=== PATIENT | male | born 1995 | race Caucasian/White ===

== ENCOUNTER 2017-12-25 18:04 | Emergency (ER) | payer OTHER ==
[2017-12-25 18:12] VITALS: BP 109/68; TEMP 99
--- NOTE | 2017-12-25 18:23 | ED ---
ENT HPI - General Chief complaint: ENT Stated complaint: sore throat Time Seen by Provider: 12/25/17 18:18 Source: patient, RN notes reviewed Mode of arrival: ambulatory Limitations: no limitations - History of Present Illness Initial comments: This is a 22-year-old male who presents to the emergency department with chief complaint of sore throat. Patient states that his throat began to feel sore 2 days ago. He states that he feels like he may have strep throat as he has noticed lesions on his tonsils. Patient states that he has difficulty swallowing due to the pain. He states that he has also been febrile. Denies abdominal pain, nausea or vomiting, diarrhea or constipation. He denies any difficulty breathing or chest pain. - Related Data Previous Rx's Medication Instructions Recorded Sulfamethox-Tmp 800-160Mg [Bactrim 2 each PO Q12HR #56 tab 04/29/15 DS 800-160 mg] Amoxicillin 875 mg PO Q12HR #20 tablet 12/25/17 Allergies Allergy/AdvReac Type Severity Reaction Status Date / Time No Known Allergies Allergy Verified 12/25/17 18:12 Review of Systems ROS Statement: Those systems with pertinent positive or pertinent negative responses have been documented in the HPI. ROS Other: All systems not noted in ROS Statement are negative. Past Medical History Past Medical History: No Reported History History of Any Multi-Drug Resistant Organisms: None Reported Past Surgical History: Adenoidectomy Past Psychological History: No Psychological Hx Reported Smoking Status: Current every day smoker Past Alcohol Use History: Occasional Past Drug Use History: None Reported General Exam - General Exam Comments Initial Comments: General: Awake and alert, well-developed; in no apparent distress. HEENT: Head atraumatic, normocephalic. Pupils are equal, round and reactive to light. Extraocular movements intact. Oropharynx moist, diffusely erythematous with exudates noted on bilateral tonsils. Neck: Supple. Normal ROM. Tender cervical lymphadenopathy. Cardiovascular: Regular rate and rhythm. No murmurs, rubs or gallops. Chest symmetrical. Respiratory: Lungs clear to auscultation bilaterally. No wheezes, rales or rhonchi. Normal respiratory effort with no use of accessory muscles. Musculoskeletal: Normal ROM, no tenderness bilateral upper and lower extremities. Ambulating normally. Skin: [place], warm and dry without rashes or lesions. Neurological: Alert and oriented x3. CN II-XII grossly intact. Speech is fluent and answers are appropriate. No focal neuro deficits. Psychiatric: Normal mood and affect. No overt signs of depression or anxiety noted. Limitations: no limitations Course Vital Signs 12/25/17 12/25/17 18:09 18:53 Temperature 99.0 F Pulse Rate 108 H 94 Respiratory 20 17 Rate Blood Pressure 109/68 O2 Sat by Pulse 100 100 Oximetry Medical Decision Making - Medical Decision Making This is a 22-year-old male who presents to the emergency department with chief complaint of sore throat. Rapid strep was positive. Patient will be given a prescription for amoxicillin. He is in no acute distress and will be discharged home. He is in agreement and voices understanding. All questions were answered. - Lab Data Lab Results 12/25/17 Range/Units 18:20 Group A Strep Rapid Positive A (Negative) Disposition Clinical Impression: Streptococcal sore throat Disposition: HOME SELF-CARE Condition: Good Instructions: Strep Throat (ED) Additional Instructions: Please take medications as prescribed. Please follow up with primary care provider within 1-2 days. Return to emergency department if symptoms should worsen or any concerns arise. Prescriptions: Amoxicillin 875 mg PO Q12HR #20 tablet Referrals: eClestino Mark MD [Primary Care Provider] - 1-2 days Time of Disposition: 18:44
[2017-12-25 18:54] VITALS: PULSE 94; RESP 17
== END 2017-12-25 18:52 | disposition home or self-care (01) ==
LOC: EC 18:04
DX: J02.0 Streptococcal pharyngitis (principal); F17.200 Nicotine dependence, unspecified, uncomplicated
CPT/HCPCS: 87430; 99283

== ENCOUNTER 2018-01-29 12:00 | Emergency (ER) | payer OTHER ==
[2018-01-29 12:08] VITALS: BP 113/79; PULSE 79; RESP 16; TEMP 98.6
[2018-01-29] MEDS ORDERED: DIPH,PERTUS(ACELL)TETVAC-LF 0.5 ML VIAL IM ONE (12:14)
--- NOTE | 2018-01-29 12:19 | ED ---
General Adult HPI - General Chief complaint: Wound/Laceration Stated complaint: Hand laceration Time Seen by Provider: 01/29/18 12:09 Source: patient, RN notes reviewed Mode of arrival: ambulatory Limitations: no limitations - History of Present Illness Initial comments: Patient 22-year-old male presented to the emergency room today with chief complaint of a injury to the right hand. He states that a glass dropped and was trying to catch it broke as he hit it with the back of his hand causing a laceration just distal to the third MCP joint. Patient states she has full range of motion. He states he did try to move with some glue last night noticed that his stool bleeding just a little bit this morning. He denies any other complaints or symptoms. Patient unsure of tetanus status. Patient denies any recent fever, chills, shortness of breath, chest pain, back pain, abdominal pain, nausea or vomiting, numbness or tingling, headaches or visual changes, or any other complaints. - Related Data Previous Rx's Medication Instructions Recorded Sulfamethox-Tmp 800-160Mg [Bactrim 2 each PO Q12HR #56 tab 04/29/15 DS 800-160 mg] Amoxicillin 875 mg PO Q12HR #20 tablet 12/25/17 Cephalexin [Keflex] 500 mg PO Q12HR 7 Days cap 01/29/18 Allergies Allergy/AdvReac Type Severity Reaction Status Date / Time No Known Allergies Allergy Verified 12/25/17 18:12 Review of Systems ROS Statement: Those systems with pertinent positive or pertinent negative responses have been documented in the HPI. ROS Other: All systems not noted in ROS Statement are negative. Past Medical History Past Medical History: No Reported History History of Any Multi-Drug Resistant Organisms: None Reported Past Surgical History: Adenoidectomy Past Psychological History: No Psychological Hx Reported Smoking Status: Current every day smoker Past Alcohol Use History: Occasional Past Drug Use History: None Reported General Exam - General Exam Comments Initial Comments: General: The patient is awake and alert, in no distress, and does not appear acutely ill. Neck: The neck is supple, there is no tenderness or JVD. Cardiovascular: There is a regular rate and rhythm. No murmur, rub or gallop is appreciated. Respiratory: Lungs are clear to auscultation, respirations are non-labored, breath sounds are equal. No wheezes, stridor, rales, or rhonchi. Musculoskeletal: Patient has full range motion. Sensation intact. Pulses equal bilaterally 2+. Strength is 5/5 in all directions. Neurological: A&O x 3. CN II-XII intact, There are no obvious motor or sensory deficits. Coordination appears grossly intact. Speech is normal. Skin: 1 cm linear laceration running horizontally just distal to the MCP joint of the third digit. No active bleeding. Wound edges are covered with glue. Psychiatric: Normal mood and affect. Limitations: no limitations Course Vital Signs 01/29/18 12:04 Temperature 98.6 F Pulse Rate 79 Respiratory 16 Rate Blood Pressure 113/79 O2 Sat by Pulse 98 Oximetry Medical Decision Making - Medical Decision Making Patient's x-ray reviewed no sign of foreign body. No fracture dislocation. Patient's tetanus updated. Patient advised that is been wound has been open for her than 12 hours. Advised to allow to heal by secondary intention will be given antibiotics cover for infection. Disposition Clinical Impression: Laceration Disposition: HOME SELF-CARE Condition: Good Instructions: Laceration (ED) Additional Instructions: Please watch for signs of infection. Please use antibiotic as prescribed. Please return to emergency room for any other concerns. Prescriptions: Cephalexin [Keflex] 500 mg PO Q12HR 7 Days cap Referrals: Celestino Mark MD [Primary Care Provider] - 1-2 days Time of Disposition: 12:50
--- NOTE | 2018-01-29 12:30 | XR ---
EXAMINATION TYPE: XR hand limited RT DATE OF EXAM: 01/29/2018 COMPARISON: NONE HISTORY: Pain laceration third metacarpal phalangeal joint space from glass TECHNIQUE: 2 view right hand FINDINGS: No acute osseous abnormality is evident. Joint spaces are preserved. There may be some soft tissue swelling over the dorsum of the metacarpal phalangeal joint region. A radiopaque foreign body to suggest glass is not identified. IMPRESSION: 1. No acute osseous abnormality. 2. No radiopaque foreign bodies. 3. Mild soft tissue swelling dorsal metacarpal phalangeal joint space
== END 2018-01-29 12:56 | disposition home or self-care (01) ==
LOC: EC 12:00
DX: S61.212A Laceration without foreign body of right middle finger without damage to nail, initial encounter (principal); F17.200 Nicotine dependence, unspecified, uncomplicated; Z23 Encounter for immunization; W20.8XXA Other cause of strike by thrown, projected or falling object, initial encounter; Y93.89 Activity, other specified; Y92.009 Unspecified place in unspecified non-institutional (private) residence as the place of occurrence of the external cause
CPT/HCPCS: 90471; 90715; 99283

== ENCOUNTER → 2018-03-04 | Outpatient (CLI) | payer OTHER ==
--- NOTE | 2018-03-04 22:24 | MR ---
EXAMINATION TYPE: MR cervical spine wo con DATE OF EXAM: 03/04/2018 COMPARISON: NONE HISTORY: Neck pain and stiffness, Headaches TECHNIQUE: Multiplanar, multisequence images of the cervical spine were acquired. C2-C3: No evidence for degenerative disc disease. No disc bulge/herniation or protrusion. No Canal stenosis. Foramina are patent bilaterally. C3-C4: No evidence for degenerative disc disease. No disc bulge/herniation or protrusion. No Canal stenosis. Foramina are patent bilaterally. C4-C5: No evidence for degenerative disc disease. No disc bulge/herniation or protrusion. No Canal stenosis. Foramina are patent bilaterally. C5-C6: No evidence for degenerative disc disease. No disc bulge/herniation or protrusion. No Canal stenosis. Foramina are patent bilaterally. C6-C7: No evidence for degenerative disc disease. No disc bulge/herniation or protrusion. No Canal stenosis. Foramina are patent bilaterally. C7-T1: No evidence for degenerative disc disease. No disc bulge/herniation or protrusion. No Canal stenosis. Foramina are patent bilaterally. Note is made of some mild disc bulging T2-T3 with mild anterior thecal sac compression. Cord contact is not identified. This is identified only in the sagittal plane. IMPRESSION: 1. Normal MRI cervical spine. 2. Note is made of some degenerative disc changes and mild disc bulge T2-T3 with mild anterior thecal sac compression in the sagittal plane.
== END | disposition home or self-care (01) ==
LOC: RADMRIMAIN 21:14
DX: M54.2 Cervicalgia (principal); S13.120A Subluxation of C1/C2 cervical vertebrae, initial encounter
CPT/HCPCS: 72141

== ENCOUNTER → 2018-03-19 | Outpatient (CLI) | payer OTHER ==
--- NOTE | 2018-03-19 10:07 | MR ---
EXAMINATION TYPE: MR lumbar spine wo con DATE OF EXAM: 03/19/2018 COMPARISON: NONE HISTORY: Subluxation of lumbar vertebra TECHNIQUE: Multiplanar, multisequence images of the lumbar spine were acquired. FINDINGS: The vertebral bodies maintain normal vertebral body height and alignment. Bone marrow signa l is within normal limits. Small Schmorl's node is seen of the inferior endplate of T12. Conus [place] is unremarkable terminating at T12-L1. L1-L2: There is a very small broad-based disc bulge with mild flattening of the usual disc and cavity posteriorly. No significant disc desiccation. No focality to indicate disc herniation. No annular te ar. No neural foraminal narrowing or spinal canal stenosis. L2-L3: Normal disc appearance without desiccation. No herniation, protrusion or disc bulging. No ca nal stenosis is present. Foramina are patent bilaterally. L3-L4: Normal disc appearance without desiccation. No herniation, protrusion or disc bulging. No ca nal stenosis is present. Foramina are patent bilaterally. L4-L5: Very small disc bulge is seen without disc desiccation, herniation or annular tear. No spinal canal stenosis or neuroforaminal narrowing. L5-S1: Normal disc appearance without desiccation. No herniation, protrusion or disc bulging. No ca nal stenosis is present. Foramina are patent bilaterally. IMPRESSION: 1. No spinal canal stenosis, disc herniation or neural foraminal narrowing throughout the lumbar spin e. Vertebral bodies maintain normal vertebral body height and alignment. Unremarkable bone marrow sig nal. 2. Very mild degenerative disc disease of L1-L2 and L4-L5.
== END | disposition home or self-care (01) ==
LOC: RADMRIMAIN 09:25
PROVIDERS: ATTEND Chiropractor
DX: M51.36 Other intervertebral disc degeneration, lumbar region (principal); M54.2 Cervicalgia
CPT/HCPCS: 72148

== ENCOUNTER 2018-05-21 10:54 | Emergency (ER) | payer OTHER ==
[2018-05-21 11:06] VITALS: BP 112/85; PULSE 78; RESP 20; TEMP 98
[2018-05-21] MEDS ORDERED: MORPHINE SULFATE 2 MG/ML SYRINGE IM STA (11:28)
[2018-05-21] MEDS ORDERED: KETOROLAC 60 MG/2 ML VIAL IM STA (11:28)
--- NOTE | 2018-05-21 11:30 | ED ---
General Adult HPI - General Chief complaint: Fall Stated complaint: Rib Injury Time Seen by Provider: 05/21/18 11:05 Source: patient, RN notes reviewed Mode of arrival: ambulatory Limitations: no limitations - History of Present Illness Initial comments: This is a 22-year-old male who comes in complaining of left sided rib pain. Patient states he was trying to get into his house through the bathroom window when he came into the bathroom and ago he fell onto a ceramic tub against the left side of his rib cage. Patient states this occurred 3 days ago when he was locked out of his house. Patient states he has no shortness of breath but it hurts to take a deep breath. Patient denies any other pain patient denies any head or neck injury. Patient denies any abdominal pain. - Related Data Home Medications Medication Instructions Recorded Confirmed Eye Lubricant Combination No.1 1 applic BOTH EYES DAILY PRN 05/21/18 05/21/18 [[place]] Previous Rx's Medication Instructions Recorded Amoxicillin 875 mg PO Q12HR #20 tablet 12/25/17 Hydrocodone/Acetaminophen [[place] 1 each PO Q4HR PRN #14 tab 05/21/18 5-325] Ibuprofen [Motrin] 600 mg PO Q6HR PRN #20 tab 05/21/18 Allergies Allergy/AdvReac Type Severity Reaction Status Date / Time apple AdvReac Unknown Verified 05/21/18 11:58 Review of Systems ROS Statement: Those systems with pertinent positive or pertinent negative responses have been documented in the HPI. ROS Other: All systems not noted in ROS Statement are negative. Past Medical History Past Medical History: No Reported History History of Any Multi-Drug Resistant Organisms: None Reported Past Surgical History: Adenoidectomy Past Psychological History: No Psychological Hx Reported Smoking Status: Current every day smoker Past Alcohol Use History: Occasional Past Drug Use History: None Reported General Exam - General Exam Comments Initial Comments: GENERAL: Patient is well-developed and well-nourished. Patient is nontoxic and well- hydrated and is in mild distress. ENT: Neck is soft and supple. No significant lymphadenopathy is noted. Oropharynx is clear. Moist mucous membranes. Neck has full range of motion without eliciting any pain. EYES: The sclera were anicteric and conjunctiva were pink and moist. Extraocular movements were intact and pupils were equal round and reactive to light. Eyelids were unremarkable. PULMONARY: Unlabored respirations. Good breath sounds bilaterally. No audible rales rhonchi or wheezing was noted. CARDIOVASCULAR: There is a regular rate and rhythm without any murmurs gallops or rubs. Left lateral ribs are extremely tender to touch ABDOMEN: Soft and nontender with normal bowel sounds. No palpable organomegaly was noted. There is no palpable pulsatile mass. SKIN: Skin is clear with no lesions or rashes and otherwise unremarkable. NEUROLOGIC: Patient is alert and oriented x3. Cranial nerves II through XII are grossly intact. Motor and sensory are also intact. Normal speech, volume and content. Symmetrical smile. MUSCULOSKELETAL: Normal extremities with adequate strength and full range of motion. LYMPHATICS: No significant lymphadenopathy is noted PSYCHIATRIC: Normal psychiatric evaluation. Limitations: no limitations Course Vital Signs 05/21/18 11:04 Temperature 98.0 F Pulse Rate 78 Respiratory 20 Rate Blood Pressure 112/85 O2 Sat by Pulse 99 Oximetry Medical Decision Making - Medical Decision Making Chest x-ray shows no obvious rib fractures or injury to the lung Disposition Clinical Impression: Chest wall contusion Disposition: HOME SELF-CARE Instructions: Chest Wall Pain (ED) Prescriptions: Hydrocodone/Acetaminophen [[place] 5-325] 1 each PO Q4HR PRN #14 tab PRN Reason: Pain Ibuprofen [Motrin] 600 mg PO Q6HR PRN #20 tab PRN Reason: For pain Is patient prescribed a controlled substance at d/c from ED?: Yes When asked, does pt state using other controlled substances?: No If prescribed controlled substance>3 days was MAPS reviewed?: Prescribed <3 Days If opioid is for acute pain is fill amount 7 days or less?: Yes If Rx opioid, was Start Talking consent form obtained?: Yes Referrals: None,Stated [Primary Care Provider] - 1-2 days Time of Disposition: 12:02
--- NOTE | 2018-05-21 11:59 | XR ---
EXAMINATION TYPE: XR chest 2V DATE OF EXAM: 05/21/2018 COMPARISON: 04/29/2015 INDICATION: Difficulty breathing TECHNIQUE: Frontal and lateral views of the chest are obtained. FINDINGS: The heart size is normal. The pulmonary vasculature is normal. The lungs are clear. IMPRESSION: 1. No acute pulmonary process.
== END 2018-05-21 12:07 | disposition home or self-care (01) ==
LOC: EC 10:54
DX: S20.212A Contusion of left front wall of thorax, initial encounter (principal); F17.200 Nicotine dependence, unspecified, uncomplicated; Z91.018 Allergy to other foods; W18.2XXA Fall in (into) shower or empty bathtub, initial encounter; Y93.89 Activity, other specified; Y92.002 Bathroom of unspecified non-institutional (private) residence as the place of occurrence of the external cause
CPT/HCPCS: 71046; 99283; 96372 ×2; J1885; J2270

== ENCOUNTER 2019-03-04 11:56 | Emergency (ER) | payer OTHER ==
[2019-03-04 12:01] VITALS: TEMP 97.5
--- NOTE | 2019-03-04 12:21 | ED ---
Head Injury HPI - General Chief complaint: Head Injury Stated complaint: HEAD INJURY Time Seen by Provider: 03/04/19 12:04 Source: patient Mode of arrival: ambulatory Limitations: no limitations - History of Present Illness Initial comments: 23-year-old male who denies past medical history presenting today for chief complaint of head injury. Patient states that he was at the bottom of a temporal ladder where there was a claw hammer sitting on the top rung, he went to move the ladder when the hammer fell on the top of his head. Patient states he felt out of it for second he denies complete loss of consciousness or fall. He states he has had a headache since. Upon arrival patient complains of nausea. No episodes of vomiting. Pt denies diplopia, vision loss, neck injury, numbness tingling or loss sensation or muscle weakness of the upper or lower extremities. Pt states his head was bleeding. Pt states tetanus is up to date. Pt AAOx3 upon arrival holding ice to head. No slurring of speech or AMS. Complaining of headache. - Related Data Home Medications Medication Instructions Recorded Confirmed No Known Home Medications 03/04/19 03/04/19 Allergies/Adverse reactions: Allergies Allergy/AdvReac Type Severity Reaction Status Date / Time apple AdvReac Unknown Verified 03/04/19 12:10 Review of Systems ROS Statement: Those systems with pertinent positive or pertinent negative responses have been documented in the HPI. ROS Other: All systems not noted in ROS Statement are negative. Past Medical History Past Medical History: No Reported History History of Any Multi-Drug Resistant Organisms: None Reported Past Surgical History: Adenoidectomy Past Psychological History: No Psychological Hx Reported Smoking Status: Current every day smoker Past Alcohol Use History: Occasional Past Drug Use History: None Reported General Exam - General Exam Comments Initial Comments: General: The patient is awake and alert, in no distress, and does not appear acutely ill. Eye: +3 mm pupils are equal, round and reactive to light, extra-ocular movements are intact. No nystagmus. There is normal conjunctiva bilaterally. No signs of icterus. Ears, nose, mouth and throat: There are moist mucous membranes and no oral lesions. Neck: The neck is supple, there is no tenderness or JVD. Cardiovascular: There is a regular rate and rhythm. No murmur, rub or gallop is appreciated. Respiratory: Lungs are clear to auscultation, respirations are non-labored, breath sounds are equal. No wheezes, stridor, rales, or rhonchi. Gastrointestinal: Soft, non-distended, non-tender abdomen without masses or organomegaly noted. There is no rebound or guarding present. No CVA tenderness. Bowel sounds are unremarkable. Musculoskeletal: Normal ROM, no tenderness. Strength 5/5. Sensation intact. Radial pulses equal bilaterally 2+. Neurological: A&O x 3. CN II-XII intact, memory intact to immediately, intermediate and recreational therapy aide recall. Able to follow simple verbal. Able to name a common object (pen). High quality, labial (pa) and lingual (la) speech. Low quality posterior pharynx/larynx (ga) voice sounds. Able to express general knowledge. No hemineglect or inattention noted. Finger agnosia (-) and spatially oriented. Light touch and temperature sensation present over the face, chest, abdomen, back, UE bilaterally, and LE bilaterally. Able to localize point during point localization b/l and extinction. No visible bulk atrophy, hypertrophy, fasciculations, or myoclonus of the UE or LE b/l. Full PROM in UE and LE b/l. Bilateral muscle strength 5/5 for the following muscles: deltoid, biceps, triceps, brachioradialis, wrist extensors/flexor, hip flexor, hip abductors/adductors, hamstrings, quadriceps, feet dorsiflexors/plantar flexors. Finger to nose, finger to the examiners finger, and heel to diaz coordinated and accurate b/l. Coordinated and even demonstration of hand flip, finger to thumb, and toe tap b/l. (-) Babinski. +2 brachioradialis, triceps, patellar, and Achilles DTR b/l. Gait is coordinated and even in stride with tandem. . (-) pronator drift. No nuchal rigidity. Skin: Skin is warm and dry and no rashes or lesions are noted. No crepitus to palpation of the scalp. There is a 1.7cm laceration of the top/frontal region of scalp. No active bleeding. No exposure of underlying structure there is no crepitus to palpation and there is a hematoma present. Psychiatric: Cooperative, appropriate mood & affect, normal judgment. Limitations: no limitations Course Vital Signs 03/04/19 11:58 Temperature 97.5 F L Pulse Rate 107 H Respiratory 16 Rate Blood Pressure 133/92 O2 Sat by Pulse 97 Oximetry Procedures - Laceration Laceration #1 Consent Obtained: verbal consent Indication: laceration Site: scalp Size (cm): 2 (actual size 1.7cm) Description: linear, avulsion Depth: simple, single layer Type of Sutures: other (john, 2) Patient Tolerated Procedure: well, no complications Additional Comments: Area was extensively irrigated prior to closure, cleansed with iodine. Medical Decision Making - Medical Decision Making 23-year-old male presenting for head injury. Claw hammer fell from 7-10 feet on the patient's head. 2.7cm laceration was irrigated and explored and cleansed and stapled. Wound edges approximate well. Care and return parameters discussed in reguards to john. No focal neurological deficits. Patient complains of headache, improvement with medication. Pt given zofran and norco. Will be discharged with Tylenol No. 3 starter pack. Patient is to use his for severe pain appropriate use and a Mr. she was discussed at length the patient including risks of opiod use. Repeat neuro exam no change. Pt appears well CT brain wo contrast (-) for acute intracranial process. Pt states he is ready for discharge. Discussed case with a provider Dr. Portillo was agreeable patient care plan and discharged. I do feel patient has concussion concussion protocols were discussed at length prior to discharge with patient. He verbalized understanding. This included no contact sports or perform activities with increased risk of head injury. Patient verbalized understanding I did recommend repeat neuro exam by primary care provider in 2 days return parameters were discussed on the patient. Disposition Clinical Impression: Head injury, Concussion, Scalp laceration, Hematoma of scalp Disposition: HOME SELF-CARE Condition: Good Instructions (If sedation given, give patient instructions): Concussion (ED), Staple Care (ED) Additional Instructions: Please use medication as discussed. Please follow-up with family doctor in the next 2 days for repeat neurological exam as discussed, I recommend return for staple removal in 5 days or have john removed at primary care provider in 5 days. Please return to emergency room if the symptoms increase or worsen or for any other concerns, increasing headache, vomiting, visual changes, speech changes. Is patient prescribed a controlled substance at d/c from ED?: No Referrals: None,Stated [Primary Care Provider] - 1-2 days [facility] [NON[facility]] - 1-2 days Time of Disposition: 13:16
--- NOTE | 2019-03-04 12:26 | CT ---
EXAMINATION TYPE: CT brain wo con DATE OF EXAM: 03/04/2019 COMPARISON: 08/11/2017 HISTORY: Trauma to top of head from hammer today. Possible LOC. CT DLP: 1113.[address] of the brain was performed. The ventricles, basal cisterns and sulci overlying the cerebral convexities demonstrate a normal appe arance. There is no evidence for intracranial hemorrhage or sulcal effacement. No mass effects are seen. Osseous calvarium is intact. Left frontal scalp hematoma. If symptoms persist consider MRI as clinically warranted. IMPRESSION: 1. No acute intracranial process is seen at this time.
[2019-03-04] MEDS ORDERED: WATER FOR IRRIG, STERILE 1,000 ML BTL IRRIGATION ONE (12:48)
[2019-03-04] MEDS ORDERED: ONDANSETRON ODT 4 MG TAB PO STA (12:49)
[2019-03-04] MEDS ORDERED: HYDROcodone/APAP 5-325MG 1 EACH TAB PO STA (12:49)
[2019-03-04] MEDS ORDERED: ACET/COD 300 MG/30 MG STARTER PACK 6 TAB BTL PO STA (13:16)
[2019-03-04 13:38] VITALS: BP 128/69; PULSE 62; RESP 18
== END 2019-03-04 13:37 | disposition home or self-care (01) ==
LOC: EC 11:56
DX: S01.01XA Laceration without foreign body of scalp, initial encounter (principal); S06.0X0A Concussion without loss of consciousness, initial encounter; F17.200 Nicotine dependence, unspecified, uncomplicated; Z91.018 Allergy to other foods; W20.8XXA Other cause of strike by thrown, projected or falling object, initial encounter; Y92.89 Other specified places as the place of occurrence of the external cause; Y93.89 Activity, other specified
CPT/HCPCS: 12001; 70450; 99284

== ENCOUNTER 2019-11-08 01:41 | Emergency (ER) | payer OTHER ==
[2019-11-08] MEDS ORDERED: LIDOCAINE 1% INJ 10MG/ML (20 ML MDV) SQ STA (01:51)
[2019-11-08] MEDS ORDERED: DIPH,PERTUS(ACELL)TETVAC-LF 0.5 ML VIAL IM ONE (01:51)
--- NOTE | 2019-11-08 02:19 | XR ---
EXAMINATION TYPE: XR hand complete RT DATE OF EXAM: 11/08/2019 COMPARISON: 01/29/2018 HISTORY: Laceration. TECHNIQUE: 3 views FINDINGS: Metacarpals are intact. I see no fracture nor dislocation. There is 3 mm density on the marleen sum of the proximal phalanx of the middle finger that could be a broken glass fragment. IMPRESSION: Possible foreign body. No fracture seen.
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
[2019-11-08 03:10] VITALS: BP 126/70; PULSE 80; RESP 18; TEMP 98
== END 2019-11-08 03:10 | disposition home or self-care (01) ==
LOC: EC 01:41
DX: S61.222A Laceration with foreign body of right middle finger without damage to nail, initial encounter (principal); S61.210A Laceration without foreign body of right index finger without damage to nail, initial encounter; F17.200 Nicotine dependence, unspecified, uncomplicated; Z91.018 Allergy to other foods; W25.XXXA Contact with sharp glass, initial encounter; Y93.89 Activity, other specified
CPT/HCPCS: 73130; 99283; 12041; 12002; J2001; 12001

== ENCOUNTER 2020-09-04 19:05 | Emergency (ER) | payer OTHER ==
[2020-09-04 19:43] VITALS: RESP 18
[2020-09-04] MEDS ORDERED: LIDOCAINE 1% INJ 10MG/ML (20 ML MDV) SQ ONE (20:31)
[2020-09-04] MEDS ORDERED: DIPH,PERTUS(ACELL)TETVAC-LF 0.5 ML VIAL IM ONE (20:32)
--- NOTE | 2020-09-04 20:53 | ED ---
General Adult HPI - General Chief complaint: Wound/Laceration Stated complaint: Chin Lac Time Seen by Provider: 09/04/20 20:28 Source: patient, RN notes reviewed Mode of arrival: ambulatory Limitations: no limitations - History of Present Illness Initial comments: 25-year-old male presents to the emergency room for a chief complaint of laceration. Patient tripped and fell at home and hit his face on a glass table. Patient has a cut on his chin and on his left lower lip. Patient does not have a headache or loss of consciousness. Patient does not take blood thinners. He denies neck pain.Patient has no other complaints at this time including shortness of breath, chest pain, abdominal pain, nausea or vomiting, headache, or visual changes. - Related Data Home Medications Medication Instructions Recorded Confirmed No Known Home Medications 03/04/19 03/04/19 Allergies Allergy/AdvReac Type Severity Reaction Status Date / Time apple AdvReac Unknown Verified 09/04/20 19:50 Review of Systems ROS Statement: Those systems with pertinent positive or pertinent negative responses have been documented in the HPI. ROS Other: All systems not noted in ROS Statement are negative. Past Medical History Past Medical History: No Reported History History of Any Multi-Drug Resistant Organisms: None Reported Past Surgical History: Adenoidectomy Past Psychological History: No Psychological Hx Reported Smoking Status: Current every day smoker Past Alcohol Use History: Occasional Past Drug Use History: Marijuana General Exam Limitations: no limitations General appearance: alert, in no apparent distress Head exam: Present: atraumatic, normocephalic, normal inspection Eye exam: Present: normal appearance, PERRL, EOMI. Absent: scleral icterus, conjunctival injection, periorbital swelling ENT exam: Present: normal exam, mucous membranes moist, TM's normal bilaterally, normal external ear exam. Absent: normal oropharynx (Patient has a recently laceration noted to the chin as well as a 1 cm laceration of the left lower lip involving the vermilion border.) Neck exam: Present: normal inspection, full ROM. Absent: tenderness, meningismus, lymphadenopathy Respiratory exam: Present: normal lung sounds bilaterally. Absent: respiratory distress, wheezes, rales, rhonchi, stridor Cardiovascular Exam: Present: regular rate, normal rhythm, normal heart sounds. Absent: systolic murmur, diastolic murmur, rubs, gallop, clicks Neurological exam: Present: alert Course Vital Signs 09/04/20 09/04/20 19:33 21:04 Temperature 98 F 98.6 F Pulse Rate 90 87 Respiratory 18 18 Rate Blood Pressure 109/67 113/66 O2 Sat by Pulse 100 98 Oximetry Procedures - Laceration Laceration #1 Consent Obtained: verbal consent Indication: laceration Site: face Size (cm): 3 Description: linear Depth: simple, single layer Anesthetic Used: lidocaine 1% Anesthesia Technique: local infiltration Amount (mls): 8 Pre-repair: wound explored, irrigated extensively Type of Sutures: nylon Size of Sutures: 5-0 Number of Sutures: 4 Technique: simple, interrupted Patient Tolerated Procedure: well, no complications Laceration #2 Consent Obtained: verbal consent Indication: laceration Site: lip Size (cm): 1 Description: linear Depth: simple, single layer Pre-repair: wound explored, irrigated extensively Type of Sutures: nylon Size of Sutures: 5-0 Number of Sutures: 1 Technique: simple, interrupted Patient Tolerated Procedure: well, no complications Additional Comments: Vermilion border approximated Medical Decision Making - Medical Decision Making Lacerations were cleaned and repaired. Lip laceration did involve vermilion border which was approximated. Patient does not have any other signs of injury. No head injury. This time patient can be discharged home. He will return for any worsening symptoms. He does have his mother at bedside who will drive him home. Disposition Clinical Impression: Laceration Disposition: HOME SELF-CARE Condition: Good Instructions (If sedation given, give patient instructions): Care For Your Stitches (ED), Laceration (ED) Additional Instructions: Please keep the area clean. Apply antibiotic ointment twice daily. Monitor for any signs of infection such as spreading or streaking redness, drainage, or fevers. Return in 5 days for suture removal. You have 4 sutures in your chin and one suture in your lip. Is patient prescribed a controlled substance at d/c from ED?: No Referrals: Celetsino Mark MD [Primary Care Provider] - 1-2 days Time of Disposition: 20:53
[2020-09-04 21:05] VITALS: BP 113/66; PULSE 87; TEMP 98.6
== END 2020-09-04 21:05 | disposition home or self-care (01) ==
LOC: EC 19:05
DX: S01.511A Laceration without foreign body of lip, initial encounter (principal); S01.81XA Laceration without foreign body of other part of head, initial encounter; F17.200 Nicotine dependence, unspecified, uncomplicated; Z91.018 Allergy to other foods; Z23 Encounter for immunization; W01.110A Fall on same level from slipping, tripping and stumbling with subsequent striking against sharp glass, initial encounter; Y92.009 Unspecified place in unspecified non-institutional (private) residence as the place of occurrence of the external cause
CPT/HCPCS: 90715; 99282; 12013; 90471; J2001

== ENCOUNTER 2021-11-22 20:52 | Emergency (ER) | payer OTHER ==
[2021-11-22 21:28] VITALS: TEMP 98.3
--- NOTE | 2021-11-22 22:03 | ED ---
Nausea/Vomiting/Diarrhea HPI - General Chief complaint: Nausea/Vomiting/Diarrhea Stated complaint: Vomiting Blood Time Seen by Provider: 11/22/21 21:29 Source: patient Mode of arrival: ambulatory Limitations: no limitations - History of Present Illness Initial comments: This patient is 26-year-old man who presents to be evaluated after an episode of vomiting that brought some blood. The patient states he had just finished eating dinner yesterday. He had smoked marijuana and he states that he gagged and coughed and when he did he vomited and there was some blood in the emesis. He states that it was a moderate amount of finds it difficult to fully characterize. Patient believes it may be related to alcohol, he drinks about a pint per day. Patient has had no further vomiting or hematemesis. He has not noted change in stool. No dark tarry or bloody stool. Patient denies abdominal pain. Onset/Timin -: days(s) Description of Vomiting: blood-streaked Associated Abdominal Pain: No Radiation: none Severity scale (1-10): 0 Improves with: none Worsens with: none - Related Data Home Medications Medication Instructions Recorded Confirmed No Known Home Medications 03/04/19 11/22/21 Allergies Allergy/AdvReac Type Severity Reaction Status Date / Time apple AdvReac Unknown Verified 11/22/21 22:14 Review of Systems ROS Statement: Those systems with pertinent positive or pertinent negative responses have been documented in the HPI. ROS Other: All systems not noted in ROS Statement are negative. Constitutional: Denies: fever, chills Respiratory: Denies: cough, dyspnea Cardiovascular: Denies: chest pain, palpitations Gastrointestinal: Reports: as per HPI, hematemesis. Denies: abdominal pain, nausea, vomiting, diarrhea, melena, hematochezia Genitourinary: Denies: dysuria, hematuria Musculoskeletal: Denies: back pain Skin: Denies: rash Neurological: Denies: headache, weakness Hematological/Lymphatic: Denies: easy bleeding Past Medical History Past Medical History: No Reported History History of Any Multi-Drug Resistant Organisms: None Reported Past Surgical History: Adenoidectomy Past Psychological History: No Psychological Hx Reported Smoking Status: Current every day smoker Past Alcohol Use History: Occasional Past Drug Use History: Marijuana General Exam Limitations: no limitations General appearance: alert, in no apparent distress Head exam: Present: atraumatic, normocephalic Eye exam: Present: normal appearance. Absent: scleral icterus, conjunctival injection ENT exam: Present: normal oropharynx Neck exam: Present: normal inspection Respiratory exam: Present: normal lung sounds bilaterally. Absent: respiratory distress, wheezes, rales, rhonchi, stridor Cardiovascular Exam: Present: regular rate, normal rhythm, normal heart sounds. Absent: systolic murmur, diastolic murmur, rubs, gallop GI/Abdominal exam: Present: soft. Absent: distended, tenderness, guarding, rebound, rigid, mass Extremities exam: Present: normal inspection, normal capillary refill. Absent: pedal edema, calf tenderness Back exam: Present: normal inspection. Absent: CVA tenderness (R), CVA tenderness (L) Neurological exam: Present: alert Skin exam: Present: warm, dry, intact, normal color. Absent: rash Course Vital Signs 11/22/21 21:24 Temperature 98.3 F Pulse Rate 92 Respiratory 20 Rate Blood Pressure 132/77 O2 Sat by Pulse 98 Oximetry Medical Decision Making - Lab Data Result diagrams: 11/22/21 22:08 11/22/21 22:08 Lab Results 11/22/21 11/22/21 11/22/21 Range/Units 22:08 22:08 22:08 WBC 7.8 (3.8-10.6) k/uL RBC 5.72 (4.30-5.90) m/uL Hgb 18.1 H (13.0-17.5) gm/dL Hct 52.8 (39.0-53.0) % MCV 92.4 (80.0-100.0) fL MCH 31.6 (25.0-35.0) pg MCHC 34.2 (31.0-37.0) g/dL RDW 13.6 (11.5-15.5) % Plt Count 204 (150-450) k/uL MPV 7.8 Neutrophils % 64 % Lymphocytes % 27 % Monocytes % 6 % Eosinophils % 2 % Basophils % 0 % Neutrophils # 5.0 (1.3-7.7) k/uL Lymphocytes # 2.1 (1.0-4.8) k/uL Monocytes # 0.4 (0-1.0) k/uL Eosinophils # 0.2 (0-0.7) k/uL Basophils # 0.0 (0-0.2) k/uL PT 9.9 (9.0-12.0) sec INR 0.9 (<1.2) APTT 23.1 (22.0-30.0) sec Sodium 138 (137-145) mmol/L Potassium 3.9 (3.5-5.1) mmol/L Chloride 103 (98-107) mmol/L Carbon Dioxide 22 (22-30) mmol/L Anion Gap 13 mmol/L BUN 11 (9-20) mg/dL Creatinine 0.79 (0.66-1.25) mg/dL Est GFR (CKD-EPI)AfAm >90 (>60 ml/min/1.73 sqM) Est GFR (CKD-EPI)NonAf >90 (>60 ml/min/1.73 sqM) Glucose 108 H (74-99) mg/dL Calcium 10.2 (8.4-10.2) mg/dL Total Bilirubin 0.8 (0.2-1.3) mg/dL AST 51 (17-59) U/L ALT 42 (4-49) U/L Alkaline Phosphatase 63 (38-126) U/L Total Protein 8.2 (6.3-8.2) g/dL Albumin 5.0 (3.5-5.0) g/dL - EKG Data -: EKG Interpreted by Mo EKG shows normal: sinus rhythm (With sinus arrhythmia), axis (Normal), intervals (Normal), QRS complexes (Normal), ST-T waves (Normal) Rate: normal (Rate 76 bpm) Disposition Clinical Impression: Vomiting alone Disposition: HOME SELF-CARE Condition: Good Instructions (If sedation given, give patient instructions): Gastrointestinal Bleeding (ED) Is patient prescribed a controlled substance at d/c from ED?: No Referrals: None,Stated [Primary Care Provider] - 1-2 days
[2021-11-22 22:27] LABS: Basophils % (A) 0 %; Eosinophils # (A) 0.2 k/uL (0-0.7); Eosinophils % (A) 2 %; HCT 52.8 % (39.0-53.0); HGB 18.1 gm/dL (13.0-17.5); Lymphocytes # (A) 2.1 k/uL (1.0-4.8); Lymphocytes % (A) 27 %; MCH 31.6 pg (25.0-35.0); MCHC 34.2 g/dL (31.0-37.0); MCV 92.4 fL (80.0-100.0); Mean Platelet Volume 7.8; Monocytes # (A) 0.4 k/uL (0-1.0); Monocytes % (A) 6 %; Neutrophils % (A) 64 %; Platelet Count 204 k/uL (150-450); RBC 5.72 m/uL (4.30-5.90); RDW 13.6 % (11.5-15.5); WBC 7.8 k/uL (3.8-10.6)
[2021-11-22 22:39] LABS: ALT 42 U/L (4-49); AST 51 U/L (17-59); African American GFR (CKD) >90 (>60 ml/min/1.73 sqM); Alkaline Phosphatase 63 U/L (38-126); Anion Gap 13 mmol/L; Blood Urea Nitrogen 11 mg/dL (9-20); Calcium 10.2 mg/dL (8.4-10.2); Carbon Dioxide 22 mmol/L (22-30); Chloride 103 mmol/L (98-107); Glucose 108 mg/dL (74-99); Non-African American GFR(CKD) >90 (>60 ml/min/1.73 sqM); Potassium 3.9 mmol/L (3.5-5.1); Sodium 138 mmol/L (137-145); Total Bilirubin 0.8 mg/dL (0.2-1.3); Total Protein 8.2 g/dL (6.3-8.2)
[2021-11-22 22:58] LABS: INR 0.9 (<1.2); Partial Thromboplastin Time 23.1 sec (22.0-30.0); Prothrombin Time 9.9 sec (9.0-12.0)
[2021-11-22] MEDS ORDERED: ONDANSETRON 4 MG/2 ML VIAL IVP STA (23:35)
[2021-11-22] MEDS ORDERED: LORazepam 2 MG/ML INJ IV STA (23:35)
[2021-11-22 23:50] VITALS: BP 115/77; PULSE 70; RESP 18
== END 2021-11-22 23:58 | disposition home or self-care (01) ==
LOC: EC 20:52
DX: R11.10 Vomiting, unspecified (principal); F17.200 Nicotine dependence, unspecified, uncomplicated; Z91.018 Allergy to other foods
CPT/HCPCS: 36415; 93005; 80053; 85025; 85610; 85730; 99284; 96374; 96375; J2060; J2405

== ENCOUNTER 2022-03-29 10:42 | Emergency (ER) | payer OTHER ==
[2022-03-29] MEDS ORDERED: ALBUTEROL HFA INHALER INHALATION STA (10:55)
[2022-03-29] MEDS ORDERED: predniSONE 50 MG TAB PO STA (10:55)
--- NOTE | 2022-03-29 11:07 | XR ---
EXAMINATION TYPE: XR chest 1V DATE OF EXAM: 03/29/2022 COMPARISON: Chest x-ray May 21, 2018 HISTORY: Cough and congestion. TECHNIQUE: Single portable frontal view of the chest is obtained. FINDINGS: There is no focal air space opacity, pleural effusion, or pneumothorax seen. The cardiac silhouette size is within normal limits. The osseous structures are intact. IMPRESSION: No acute pulmonary process. No significant change from prior.
[2022-03-29] MEDS ORDERED: AZITHROMYCIN 500 MG TAB PO STA (11:38)
--- NOTE | 2022-03-29 11:41 | ED ---
General Adult HPI - General Chief complaint: Upper Respiratory Infection Stated complaint: Congestion Time Seen by Provider: 03/29/22 10:47 Source: patient Mode of arrival: ambulatory Limitations: no limitations - History of Present Illness Initial comments: Patient is a 26 year old male who presents emergency Department complaining of upper respiratory infection for the last 4-5 days. Also states he believes his asthma is flaring up. Has a history of asthma but does not regularly use inhalers. States that since Saturday he has been having rhinorrhea, productive cough of green mucous. Denies fevers. Denies sick contacts. Was vaccinated for influenza and Covid. Denies any nausea, vomiting, abdominal pain. Has no other acute complaints at this time. - Related Data Previous Rx's Medication Instructions Recorded Albuterol Inhaler [Ventolin Hfa 1 puff INHALATION RT-TID #8 gm 03/29/22 Inhaler] Azithromycin [Zithromax] 250 mg PO DAILY 4 Days #4 tab 03/29/22 predniSONE [Deltasone] 40 mg PO DAILY 5 Days #10 tab 03/29/22 Allergies Allergy/AdvReac Type Severity Reaction Status Date / Time apple AdvReac Unknown Verified 03/29/22 10:46 Review of Systems ROS Statement: Those systems with pertinent positive or pertinent negative responses have been documented in the HPI. Review of Systems: CONST: Denies fever EYES: Denies blurry vision ENT: Endorses nasal congestion C/V: Denies Chest pain RESP: Denies shortness of breath GI: Denies abdominal pain : Denies dysuria SKIN: Denies rash. MSK: Denies joint pain. NEURO: Denies headache ROS Other: All systems not noted in ROS Statement are negative. Past Medical History Past Medical History: Asthma History of Any Multi-Drug Resistant Organisms: None Reported Past Surgical History: Adenoidectomy Past Psychological History: No Psychological Hx Reported Smoking Status: Current every day smoker Past Alcohol Use History: Occasional Past Drug Use History: Marijuana General Exam - General Exam Comments Initial Comments: General: Appears in no acute distress. HEAD: Normal with no signs of head trauma. EYES: PERRLA, EOMI, conjunctiva normal, no discharge. ENT: Hearing grossly intact, normal oropharynx. RESPIRATORY: Bilateral end expiratory wheezing. No increased work of breathing. No hypoxia. C/V: Regular rate and rhythm. S1 and S2 auscultated, no edema, peripheral pulses 2+ and intact throughout ABD: Abd is soft, nontender, nondistended EXT: Normal range of motion, no obvious deformity SKIN: No rashes or lesions observed on exposed skin. NEURO: Alert and oriented 4. Limitations: no limitations Course Vital Signs 03/29/22 03/29/22 03/29/22 10:42 10:54 12:01 Temperature 97.7 F 97.6 F Pulse Rate 101 H 73 Respiratory 18 18 17 Rate Blood Pressure 143/71 134/89 O2 Sat by Pulse 97 97 Oximetry Medical Decision Making - Medical Decision Making Based on the patient's presentation and physical exam, I do believe he is likely experiencing upper respiratory illness. Does appear to also be having a mild asthma exacerbation. Cannot rule out bronchitis. Vital signs otherwise within normal limits and stable. No respiratory distress. I did recommend that we obtain a chest x-ray as well as influenza and COVID-19 swab. He was in agreement this plan. He'll be given a breathing treatment started on steroids. Chest x-ray shows no acute cardio pulmonary process. Patient is negative for flu, Covid. I discussed the findings with the patient. I will start him on azithromycin and given his first dose here. Wheezing is improved. Believe it is safer to be discharged home with close follow-up. Discussed that he is likely having an asthma exacerbation with bronchitis. I will provide the patient with a prescription for azithromycin, prednisone, al buterol inhaler. I instructed the patient to follow up with their PCP in the next 3 days. I explained that the patient should return to the emergency department if they experience any worsening symptoms. Strict return precautions were discussed with the patient. The patient expressed understanding of these instructions. I answered all questions that the patient had. The patient was discharged home in good condition with their prescriptions and follow up information. - Lab Data Lab Results 03/29/22 03/29/22 Range/Units 10:51 10:51 Coronavirus (PCR) Not Detected (Not Detectd) Influenza Type A RNA Not Detected (Not Detectd) Influenza Type B (PCR) Not Detected (Not Detectd) Disposition Clinical Impression: Asthma exacerbation, Bronchitis Disposition: HOME SELF-CARE Condition: Good Instructions (If sedation given, give patient instructions): Asthma (DC), Acute Bronchitis (ED) Prescriptions: predniSONE [Deltasone] 40 mg PO DAILY 5 Days #10 tab Albuterol Inhaler [Ventolin Hfa Inhaler] 1 puff INHALATION RT-TID #8 gm Azithromycin [Zithromax] 250 mg PO DAILY 4 Days #4 tab Is patient prescribed a controlled substance at d/c from ED?: No Referrals: None,Stated [Primary Care Provider] - 1-2 days Time of Disposition: 11:35
[2022-03-29 12:02] VITALS: BP 134/89; PULSE 73; RESP 17; TEMP 97.6
== END 2022-03-29 12:02 | disposition home or self-care (01) ==
LOC: EC 10:42
DX: J45.901 Unspecified asthma with (acute) exacerbation (principal); F17.200 Nicotine dependence, unspecified, uncomplicated; Z20.822 Contact with and (suspected) exposure to COVID-19; Z91.018 Allergy to other foods
CPT/HCPCS: 94640; 87502; 87635; 71045; 99283; J7512

== ENCOUNTER 2022-04-06 23:46 | Emergency (ER) | payer SELFPAY ==
[2022-04-06 23:59] VITALS: TEMP 98
[2022-04-07] MEDS ORDERED: LIDOCAINE 1% INJ 10MG/ML (5 ML VIAL-PF) SQ ONE (00:03)
[2022-04-07] MEDS ORDERED: BACITRACIN OINT 1 EACH PACKET TOPICAL ONE (00:36)
--- NOTE | 2022-04-07 00:36 | ED ---
Wound/Laceration HPI - General Chief Complaint: Wound/Laceration Stated Complaint: Right Middle Finger Laceration Time Seen by Provider: 04/07/22 00:03 Source: patient, RN notes reviewed Mode of arrival: wheelchair - History of Present Illness Initial Comments: This is a [id number] 26-year-old male who presents to [facility] complaining of a laceration to the right middle finger. Patient unsure how he did this. Patient is under the influence of alcohol was brought here by his mother. He denies any other injuries. Patient states he injured the finger and then looked down it was bleeding. Patient states when he flexes that it keeps opening up and bleeding more. He other injuries. Tetanus status is up-to-date. Patient has no significant past medical history. Patient is right-hand dominant. No headache, no fever or chills, no changes in vision or hearing, no sore throat or difficulty with speech, no neck pain, no chest pain or shortness of breath, no abdominal pain, no nausea or vomiting, no changes in urination or bowel movements, no numbness or tingling, no skin rashes or lesions. - Related Data Previous Rx's Medication Instructions Recorded Albuterol Inhaler [Ventolin Hfa 1 puff INHALATION RT-TID #8 gm 03/29/22 Inhaler] Azithromycin [Zithromax] 250 mg PO DAILY 4 Days #4 tab 03/29/22 predniSONE [Deltasone] 40 mg PO DAILY 5 Days #10 tab 03/29/22 Allergies Allergy/AdvReac Type Severity Reaction Status Date / Time apple AdvReac Unknown Verified 04/06/22 23:59 Review of Systems ROS Statement: Those systems with pertinent positive or pertinent negative responses have been documented in the HPI. ROS Other: All systems not noted in ROS Statement are negative. Past Medical History Past Medical History: Asthma History of Any Multi-Drug Resistant Organisms: None Reported Past Surgical History: Adenoidectomy Past Psychological History: No Psychological Hx Reported Smoking Status: Current every day smoker Past Alcohol Use History: Occasional Past Drug Use History: Marijuana General Exam - General Exam Comments Initial Comments: Patient is intoxicated but is able to give limited history. Alert and oriented 4. Cranial nerves II through XII intact. Here with his mother. Patient not driving. Patient has no significant gait disturbance. General appearance: alert, in no apparent distress Head exam: Present: atraumatic, normocephalic, normal inspection, other (No evidence of head injury. Cranial nerves II through XII are intact) Eye exam: Present: normal appearance, PERRL, EOMI. Absent: scleral icterus, conjunctival injection, periorbital swelling ENT exam: Present: normal exam, mucous membranes moist Neck exam: Present: normal inspection, full ROM. Absent: tenderness, meningismus, lymphadenopathy Respiratory exam: Present: normal lung sounds bilaterally. Absent: respiratory distress, wheezes, rales, rhonchi, stridor Cardiovascular Exam: Present: regular rate, normal rhythm, normal heart sounds. Absent: systolic murmur, diastolic murmur, rubs, gallop, clicks GI/Abdominal exam: Present: soft. Absent: tenderness Extremities exam: Present: full ROM, normal capillary refill, other (2 sinner laceration of dorsum of the right middle finger. This is superficial. No damage to underlying structures. No tendon involvement.). Absent: tenderness, pedal edema, joint swelling, calf tenderness Right Forearm Wrist exam: Present: normal inspection Hand Wrist exam: Present: full ROM, laceration. Absent: tenderness, swelling, abrasion, ecchymosis, deformity, crepitus, dislocation, erythema, amputation, nail avulsion, subungual hematoma Neuro motor exam: Present: wrist extension intact, thumb opposition intact, thumb IP flexion intact, thumb adduction intact, fingers 2-5 abduction intact Neurosensory exam: Present: radial nerve intact Vascular: Present: normal capillary refill. Absent: vascular compromise, Pallo, pulse deficit radial art, pulse deficit ulnar art Back exam: Present: normal inspection Neurological exam: Present: alert, oriented X3, CN II-XII intact Psychiatric exam: Present: normal affect, normal mood Skin exam: Present: warm, dry, intact, normal color. Absent: rash Course Vital Signs 04/06/22 23:56 Temperature 98 F Pulse Rate 98 Respiratory 17 Rate Blood Pressure 126/64 Procedures - Laceration Laceration #1 Indication: laceration Site: upper extremity (Right middle finger) Size (cm): 2 Description: linear Depth: simple, single layer Anesthetic Used: lidocaine 1% Anesthesia Technique: nerve block (Digital block) Amount (mls): 3 Pre-repair: wound explored, irrigated extensively, deep structures intact Type of Sutures: nylon Size of Sutures: 5-0 Number of Sutures: 4 Technique: simple, interrupted Patient Tolerated Procedure: well, no complications Medical Decision Making - Medical Decision Making Isolated injury to right middle finger. Patient consult care. Patient and family counseled on wound care, follow-up, signs and symptoms of infection. Tetanus status is up-to-date. Patient obviously under the influence of alcohol but is alert and oriented 4, cranial nerves II through XII intact. No evidence of head injury. Patient released under the care of his family who will stay with the patient to a sober. Suture removal in 9 or 10 days. Patient was told to return to the ER for any signs or symptoms worsen. Told to return immediately if any other problems arise. All questions answered. Treatment plan discussed. Patient in agreement Every effort has been made to ensure accuracy of this dictation. However, due to the limitations of electronic medical records and dictation devices, errors in charting still occur. Ceiling Installer, Dr. Bautista Disposition Clinical Impression: Laceration of right middle finger, Alcohol intoxication Disposition: HOME SELF-CARE Condition: Good Instructions (If sedation given, give patient instructions): Alcohol Intoxication (ED), Finger Laceration (ED) Additional Instructions: Wash the wound daily with warm soap and water. Keep the wound clean and covered. Use topical antibiotic ointment such as Neosporin or triple antibiotic ointment. Return to the ER immediately if any signs or symptoms of infection develop. Suture removal in 9 or 10 days. Is patient prescribed a controlled substance at d/c from ED?: No Referrals: None,Stated [Primary Care Provider] - 04/09/22 (As needed) Time of Disposition: 00:36
--- NOTE | 2022-04-07 00:52 | XR ---
EXAMINATION TYPE: XR finger RT DATE OF EXAM: 04/07/2022 COMPARISON: NONE HISTORY: Injury and pain TECHNIQUE: 3 views FINDINGS: I see no fracture nor dislocation. Joint spaces are normal. Soft tissues appear normal. IMPRESSION: Negative right middle finger exam
[2022-04-07 01:10] VITALS: BP 137/84; PULSE 74; RESP 20
== END 2022-04-07 01:10 | disposition home or self-care (01) ==
LOC: EC 23:46
DX: S61.212A Laceration without foreign body of right middle finger without damage to nail, initial encounter (principal); F10.129 Alcohol abuse with intoxication, unspecified; F17.200 Nicotine dependence, unspecified, uncomplicated; J45.909 Unspecified asthma, uncomplicated; X58.XXXA Exposure to other specified factors, initial encounter
CPT/HCPCS: 12001; 99283

== ENCOUNTER 2022-06-29 02:55 | Observation (INO) | payer OTHER ==
[2022-06-29] MEDS ORDERED: SODIUM CHLORIDE 0.9% 1,000 ML IV STA (03:01)
[2022-06-29] MEDS ORDERED: LORazepam 2 MG/ML INJ IV PRN ×3 (03:01)
[2022-06-29] MEDS ORDERED: THIAMINE 100 MG/ML 2 ML VIAL IM STA (03:01)
[2022-06-29] MEDS ORDERED: DIPH,PERTUS(ACELL)TETVAC-LF 0.5 ML VIAL IM ONE (03:01)
--- NOTE | 2022-06-29 03:30 | ED ---
General Adult HPI - General Chief complaint: Psychiatric Symptoms Stated complaint: Mental health Time Seen by Provider: 06/29/22 03:00 Source: EMS, RN notes reviewed, old records reviewed Mode of arrival: EMS Limitations: no limitations - History of Present Illness Initial comments: Patient is a 26 year old male with past medical history remarkable for alcohol abuse who presents emergency department for psychiatric evaluation and alcohol intoxication. Endorses drinking alcohol today. Has been under more stress lately. He does not want to discuss everything with me, however states that he seems to be losing everything. States he lost his car in his house and his girlfriend. Endorses taking a steak knife and cutting across his neck with it. Denies any severe bleeding at the scene. Denies any shortness of breath, difficulty breathing, difficulty in swallowing. Does endorse drinking an unknown amount of alcohol this evening. Denies any history of withdrawals or delirium tremens. Denies homicidal ideations, attempts, plans. Endorses suicidal ideations, attempt. Denies visual or auditory hallucinations.Patient was petitioned by police. Petition states "Yadiel attempted to cut his throat with a butter knife. Yadiel stated to me he wishes he was . Yadiel is highly intoxicated as well and is a recovering alcoholic." - Related Data Previous Rx's Medication Instructions Recorded Albuterol Inhaler [Ventolin Hfa 1 puff INHALATION RT-TID #8 gm 03/29/22 Inhaler] Azithromycin [Zithromax] 250 mg PO DAILY 4 Days #4 tab 03/29/22 predniSONE [Deltasone] 40 mg PO DAILY 5 Days #10 tab 03/29/22 Allergies Allergy/AdvReac Type Severity Reaction Status Date / Time apple AdvReac Unknown Verified 06/29/22 03:05 Review of Systems ROS Statement: Those systems with pertinent positive or pertinent negative responses have been documented in the HPI. Review of Systems: CONST: Denies fever EYES: Denies blurry vision ENT: Denies nasal congestion C/V: Denies Chest pain RESP: Denies shortness of breath GI: Denies abdominal pain : Denies dysuria SKIN: Endorses superficial neck lacerations MSK: Denies joint pain. NEURO: Denies headache PSYCH: Denies homicidal ideations/plans/attempts. Denies visual or auditory hallucinations. He endorses suicidal ideations, plans, attempt. ROS Other: All systems not noted in ROS Statement are negative. Past Medical History Past Medical History: Asthma History of Any Multi-Drug Resistant Organisms: None Reported Past Surgical History: Adenoidectomy Past Psychological History: No Psychological Hx Reported Smoking Status: Current every day smoker Past Alcohol Use History: Occasional Past Drug Use History: Marijuana General Exam - General Exam Comments Initial Comments: General: Appears acutely intoxicated with alcohol. HEAD: Normal with no signs of head trauma. EYES: PERRLA, EOMI, conjunctiva normal, no discharge. ENT: Hearing grossly intact, normal oropharynx. Superficial lacerations to bilateral sides of the neck. Not actively bleeding. Did not appear deep. No carotid bruits auscultated. No stridor auscultated. No signs of neck hematoma. Low suspicion for vascular injury at this time. RESPIRATORY: Clear breath sounds bilaterally. No wheezes, rales, or rhonchi. C/V: Regular rate and rhythm. S1 and S2 auscultated, no edema, peripheral pulses 2+ and intact throughout ABD: Abd is soft, nontender, nondistended EXT: Normal range of motion, no obvious deformity SKIN: No rashes or lesions observed on exposed skin. NEURO: Alert and oriented x 4. Cranial nerves II-XII intact. No focal sensory or strength deficits. Patient appears acutely toxic with alcohol. No signs of alcohol withdrawals at this time. No tongue fasciculations. No tremors. Limitations: no limitations Course Vital Signs 06/29/22 03:01 Temperature 97.8 F Pulse Rate 88 Respiratory 18 Rate Blood Pressure 128/93 O2 Sat by Pulse 96 Oximetry Medical Decision Making - Medical Decision Making Based on the patient's presentation physical exam, I am concerned for suicide attempt. Patient will be placed in green scrubs. Sitter was ordered. Suicide precautions were ordered. We will obtain basic laboratory studies. I also recommended we obtain a CT angiogram the neck despite low suspicion for vascular injury. He was in agreement this plan. Will be given IV fluids. CIWA protocol was ordered for the patient. Tdap updated. Vital signs are within normal limits. No respiratory distress. Appears acutely intoxicated with alcohol. Patient will require psychiatric evaluation upon sobriety and medical clearance. CT angiogram of the neck show no acute injury. It was normal. After studies are remarkable for mild leukocytosis of 11 which is likely reactive. Patient has an anion gap metabolic acidosis likely secondary to acute alcohol intoxication with alcohol level 270. Patient's mild hypokalemia at 3.4 which is replenished. After the patient. He is still intoxicated at this time. Patient will be admitted to the hospital to observation with psychiatry consult due to the sever ity of alcohol intoxication. We'll continue to monitor for signs of withdrawal. I spoke with the the admitting physician, observation on-call Dr. Carlson who accepted the patient. Psychiatry was consulted. Sitter will be continued. Suicide precautions will be continued. - Lab Data Result diagrams: 06/29/22 03:15 06/29/22 03:15 Lab Results 06/29/22 06/29/22 Range/Units 03:15 03:15 WBC 11.3 H (3.8-10.6) k/uL RBC 5.47 (4.30-5.90) m/uL Hgb 16.8 (13.0-17.5) gm/dL Hct 48.3 (39.0-53.0) % MCV 88.3 (80.0-100.0) fL MCH 30.7 (25.0-35.0) pg MCHC 34.8 (31.0-37.0) g/dL RDW 12.3 (11.5-15.5) % Plt Count 220 (150-450) k/uL MPV 7.2 Neutrophils % 58 % Lymphocytes % 35 % Monocytes % 4 % Eosinophils % 2 % Basophils % 1 % Neutrophils # 6.6 (1.3-7.7) k/uL Lymphocytes # 3.9 (1.0-4.8) k/uL Monocytes # 0.4 (0-1.0) k/uL Eosinophils # 0.2 (0-0.7) k/uL Basophils # 0.1 (0-0.2) k/uL Sodium 145 (137-145) mmol/L Potassium 3.4 L (3.5-5.1) mmol/L Chloride 108 H (98-107) mmol/L Carbon Dioxide 18 L (22-30) mmol/L Anion Gap 19 mmol/L BUN 8 L (9-20) mg/dL Creatinine 0.83 (0.66-1.25) mg/dL Est GFR (CKD-EPI)AfAm >90 (>60 ml/min/1.73 sqM) Est GFR (CKD-EPI)NonAf >90 (>60 ml/min/1.73 sqM) Glucose 102 H (74-99) mg/dL Calcium 9.3 (8.4-10.2) mg/dL Serum Alcohol 270 H* mg/dL Disposition Clinical Impression: Suicidal behavior, Self-inflicted injury, Encounter for psychiatric assessment, Alcohol intoxication Disposition: ADMITTED IP TO THIS HOSP Condition: Stable Is patient prescribed a controlled substance at d/c from ED?: No Referrals: None,Stated [Primary Care Provider] - 1-2 days Time of Disposition: 04:30
[2022-06-29 03:33] LABS: Basophils # (A) 0.1 k/uL (0-0.2); Basophils % (A) 1 %; Eosinophils # (A) 0.2 k/uL (0-0.7); Eosinophils % (A) 2 %; HCT 48.3 % (39.0-53.0); HGB 16.8 gm/dL (13.0-17.5); Lymphocytes # (A) 3.9 k/uL (1.0-4.8); Lymphocytes % (A) 35 %; MCH 30.7 pg (25.0-35.0); MCHC 34.8 g/dL (31.0-37.0); MCV 88.3 fL (80.0-100.0); Mean Platelet Volume 7.2; Monocytes # (A) 0.4 k/uL (0-1.0); Monocytes % (A) 4 %; Neutrophils # (A) 6.6 k/uL (1.3-7.7); Neutrophils % (A) 58 %; Platelet Count 220 k/uL (150-450); RBC 5.47 m/uL (4.30-5.90); RDW 12.3 % (11.5-15.5); WBC 11.3 k/uL (3.8-10.6)
[2022-06-29 03:55] LABS: African American GFR (CKD) >90 (>60 ml/min/1.73 sqM); Anion Gap 19 mmol/L; Blood Urea Nitrogen 8 mg/dL (9-20); Calcium 9.3 mg/dL (8.4-10.2); Carbon Dioxide 18 mmol/L (22-30); Chloride 108 mmol/L (98-107); Glucose 102 mg/dL (74-99); Non-African American GFR(CKD) >90 (>60 ml/min/1.73 sqM); Potassium 3.4 mmol/L (3.5-5.1); Sodium 145 mmol/L (137-145)
[2022-06-29 03:59] LABS: Alcohol 270 mg/dL
[2022-06-29] MEDS: POTASSIUM CHLORIDE ER 20 MEQ TAB.ER PO STA ×2 (04:27→13:58)
--- NOTE | 2022-06-29 04:35 | CT ---
EXAMINATION TYPE: CT angio neck DATE OF EXAM: 06/29/2022 COMPARISON: None HISTORY: pt took butter knife to throat, multiple lacs all over neck, superficial. CT DLP: 468.1 mGycm Automated exposure control for dose reduction was used. CONTRAST: Performed with IV Contrast, patient injected with 65 mL of Isovue 370. Images obtained from the aortic arch through the [place] with IV contrast. There are Three-D postprocessed images. There is arterial flow in the subclavian arteries bilaterally. There is normal branching pattern of t he great vessels on the aortic arch. There is arterial flow in the common internal and external carot id arteries bilaterally. There is wide patency of the carotid artery bifurcations. There is arterial flow in both vertebral arteries. There is no evidence of carotid or vertebral artery aneurysm or dissection. No evidence of pathologic fluid collection. No stenosis. Thyroid gland appears normal. No evidence of soft tissue air. IMPRESSION: Normal CT angiogram of the neck.
[2022-06-29] MEDS ORDERED: NALOXONE 0.4 MG/ML 1 ML VIAL IV PRN (04:51)
[2022-06-29] MEDS ORDERED: ONDANSETRON 4 MG/2 ML VIAL IVP PRN (04:51)
[2022-06-29] MEDS ORDERED: SODIUM CHLORIDE 0.9% 1,000 ML IV SCH (05:00)
--- NOTE | 2022-06-29 05:50 | P.HPIM ---
History of Present Illness H&P Date: 06/29/22 The patient is a 26-year-old male with a PMH of ED was abuse who presents to the emergency room with suicidal ideation and alcohol intoxication. History obtained from the ED physician of the patient was lethargic at the time of interview and did not wish to speak. The patient had reported that he had been drinking alcohol earlier today, although he had been under a lot of stress recently due to losing his car and breaking off with his girlfriend. The patient had reported cutting his neck with a steak knife without any significant bleeding. The patient filled out by the police had reported that the patient had used a butter knife. Laboratory evaluation in the emergency room had revealed a serum alcohol level of 270 with potassium 3.4. Review of systems: Pertinent positives and negatives as discussed in HPI, a complete review of systems was performed and all other systems are negative. Physical examination: General: Disheveled male, no distress, appears at stated age, normal weight Derm: Bilateral superficial neck lacerations noted, warm Head: atraumatic, normocephalic, symmetric Eyes: EOMI, no lid lag, anicteric sclera, pupils equal round reactive to light ENT: Nose and ears atraumatic Neck: No cervical lymphadenopathy, trachea midline, supple Mouth: no lip lesion, mucus membranes dry Cardiovascular: S1S2 reg, no murmur, positive dorsalis pedis pulse bilateral, no edema Lungs: CTA bilateral, no rhonchi, no rales, no accessory muscle use Abdominal: soft, nontender to palpation, no guarding Ext: no gross muscle atrophy, no contractures, Neuro: Unable to assess, moving all extremities, no gross focal neuro deficits Psych: Lethargic, refuses to answer questions or follow commands Assessment/plan Alcohol intoxication, impending withdrawal -[facility] protocol -Thiamine -IV fluids -Monitor electrolytes Leukocytosis -No signs of active infection at this time -Likely due to acute stressor Hypokalemia -Replace and monitor DVT prophylaxis -Heparin subq The patient is admitted with an anticipated less than 2 midnight stay for evaluation of EtOH CODE STATUS: Full Code Anticipated discharge date: in am Anticipated discharge place: Home Past Medical History Past Medical History: Asthma History of Any Multi-Drug Resistant Organisms: None Reported Past Surgical History: Adenoidectomy Past Psychological History: No Psychological Hx Reported Smoking Status: Current every day smoker Past Alcohol Use History: Occasional Past Drug Use History: Marijuana - Past Family History Father Additional Family Medical History / Comment(s): Unable to obtain, patient intoxicated Medications and Allergies Home Medications Medication Instructions Recorded Confirmed Type Albuterol Inhaler [Ventolin Hfa 1 puff INHALATION RT-TID #8 gm 03/29/22 Rx Inhaler] Azithromycin [Zithromax] 250 mg PO DAILY 4 Days #4 tab 03/29/22 Rx predniSONE [Deltasone] 40 mg PO DAILY 5 Days #10 tab 03/29/22 Rx Allergies Allergy/AdvReac Type Severity Reaction Status Date / Time apple AdvReac Unknown Verified 06/29/22 03:05 Physical Exam Vitals: Vital Signs Temp Pulse Resp BP Pulse Ox 06/29/22 05:13 97.6 F 84 16 95/52 96 06/29/22 03:01 97.8 F 88 18 128/93 96 Intake and Output 06/28/22 06/28/22 06/29/22 14:59 22:59 06:59 Other: Weight 77.111 kg Results CBC & Chem 7: 06/29/22 03:15 06/29/22 03:15 Labs: Abnormal Lab Results - Last 24 Hours (Table) 06/29/22 06/29/22 Range/Units 03:15 03:15 WBC 11.3 H (3.8-10.6) k/uL Potassium 3.4 L (3.5-5.1) mmol/L Chloride 108 H (98-107) mmol/L Carbon Dioxide 18 L (22-30) mmol/L BUN 8 L (9-20) mg/dL Glucose 102 H (74-99) mg/dL Serum Alcohol 270 H* mg/dL
[2022-06-29 07:50] VITALS: RESP 18
[2022-06-29] MEDS: HEPARIN SODIUM,PORCINE/PF 5,000 UNIT/0.5 ML SYRINGE SQ SCH ×2 (11:46→16:38)
--- NOTE | 2022-06-29 12:53 | P.PN ---
Progress Note - Text Progress Note Date: 06/29/22 Admitted by my partner this morning. Denies any hx of prior suicide attempt or mental health unit stay. Clinically appear sober, answering question appropriately. Await psych evaluation.
[2022-06-29] MEDS ORDERED: hydrOXYzine pamoate 25 MG CAP PO STA (13:15)
[2022-06-29] MEDS ORDERED: NICOTINE GUM (POLACRILEX) 2 MG GUM BUCCAL PRN (13:16)
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
--- NOTE | 2022-06-29 14:43 | P.DS ---
Providers Date of admission: 06/29/22 04:51 Expected date of discharge: 06/29/22 Attending physician: Chinedu Carlson MD Consults: 06/29/22 04:50 Consult Physician Routine Consulting Provider: Ajay Wilkins Consult Reason/Comments: suicidal, ETOH Do you want consulting provider notified?: Yes, Notify in am Primary care physician: Stated None Hospital Course: Discharge Diagnosis: Acute alcohol intoxication Alcohol use disorder Leukocytosis, reactive Hypokalemia-replaced Suicide attempt Hospital Course: Patient is a 26-year-old male with no significant past medical history who is brought to the emergency room due to suicide attempt and alcohol intoxication. He attempted to slit has not with a butter knife. He was admitted as his blood alcohol level [id number] and he could not be adequately evaluated for suicidal intent. He was admitted and became clinically sober. He was evaluated by psychiatry who recommended inpatient psych placement. Patient was subsequently discharged. We will follow the mental health unit. Patient seen and examined at bedside. Denies any chest pain or shortness of breath. Denies any nausea or vomiting. Feeling slightly anxious. Wants to be left alone. Vital signs reviewed and stable. General: nontoxic, no distress, appears at stated age Derm: warm, dry Head: atraumatic, normocephalic, symmetric Eyes: EOMI, no lid lag, anicteric sclera Mouth: no lip lesion, mucus membranes moist Cardiovascular: S1S2 reg, no murmur, positive posterior tibial pulse bilateral, Lungs: CTA bilateral, no rhonchi, no rales , no accessory muscle use Abdominal: soft, nontender to palpation, no guarding, no appreciable organomegaly Ext: no gross muscle atrophy, no edema, no contractures Neuro: CN II-XI grossly intact, no focal neuro deficits Psych: Alert, oriented, appropriate affect A total of 20 minutes of time were spent preparing this complex discharge summary. Patient was discharged on 06/29/22. Patient Condition at Discharge: Stable Plan - Discharge Summary New Discharge Prescriptions: New chlordiazePOXIDE HCl [Librium] 10 mg PO TID cap FLUoxetine HCL [PROzac] 20 mg PO HS cap Nicotine Gum (Polacrilex) [Nicorette] 2 mg BUCCAL Q2HR PRN pieceofgum PRN Reason: Nicotine Cravings Thiamine [Vitamin B-1] 100 mg PO BID-W/MEALS tab Discharge Medication List FLUoxetine HCL [PROzac] 20 mg PO HS cap 06/29/22 [Rx] Nicotine Gum (Polacrilex) [Nicorette] 2 mg BUCCAL Q2HR PRN pieceofgum 06/29/22 [Rx] Thiamine [Vitamin B-1] 100 mg PO BID-W/MEALS tab 06/29/22 [Rx] chlordiazePOXIDE HCl [Librium] 10 mg PO TID cap 06/29/22 [Rx] Follow up Appointment(s)/Referral(s): None,Stated [Primary Care Provider] - 1-2 days Discharge Disposition: TRANSFER TO PSYCH HOSP/UNIT
[2022-06-29 15:15] LABS: Cocaine Screen,Urine Not Detected (NotDetected); Phencyclidine Screen,Urine Not Detected (NotDetected)
[2022-06-29 15:16] LABS: Amphetamine Screen,Urine Not Detected (NotDetected); Barbiturate Screen,Urine Not Detected (NotDetected); Benzodiazepines Screen,Urine Detected (NotDetected); Methadone Screen, Urine Not Detected (NotDetected); Opiate Screen,Urine Not Detected (NotDetected); Oxycodone Screen, Urine Not Detected (NotDetected); Tricyclic Antidepressant,Urine Not Detected (NotDetected); Urn Cannabinoid Scrn Detected (NotDetected)
[2022-06-29 17:26] VITALS: BP 117/65; PULSE 75; TEMP 98.3
[2022-06-29] MEDS ORDERED: THIAMINE 100 MG TAB PO SCH (17:30)
[2022-06-29] MEDS ORDERED: FLUoxetine HCL 20 MG CAP PO SCH (21:00)
== END 2022-06-29 17:28 ==
LOC: EC 02:55 → 6NMEDSUR 04:51
PROVIDERS: ADMIT Internal Medicine; ATTEND Internal Medicine
DX: F10.229 Alcohol dependence with intoxication, unspecified (principal); E87.2 Acidosis; E87.6 Hypokalemia; S11.81XA Laceration without foreign body of other specified part of neck, initial encounter; X78.1XXA Intentional self-harm by knife, initial encounter; F32.9 Major depressive disorder, single episode, unspecified; F41.9 Anxiety disorder, unspecified; D72.829 Elevated white blood cell count, unspecified; J45.909 Unspecified asthma, uncomplicated; Y90.8 Blood alcohol level of 240 mg/100 ml or more; F17.200 Nicotine dependence, unspecified, uncomplicated; Z79.899 Other long term (current) drug therapy; Z91.018 Allergy to other foods; Z23 Encounter for immunization
CPT/HCPCS: 90471; 96372; 99285; 36415; 80048; 85025; 80306; 70498; 90715; G0378; G0480; J3411; Q9967; 80320

== ENCOUNTER 2022-06-29 17:37 | Inpatient (IN) | payer MEDICAID ==
[2022-06-29] MEDS ORDERED: MAGNESIUM HYDROXIDE 2,400 MG/10 ML CUP PO PRN (17:52)
[2022-06-29] MEDS ORDERED: MAG HYDROX/AL HYDROX/SIMETH 30 ML CUP PO PRN (17:52)
[2022-06-29] MEDS ORDERED: HALOPERIDOL LACTATE 5 MG/ML 1 ML VIAL IM PRN (17:52)
[2022-06-29] MEDS ORDERED: ACETAMINOPHEN TAB 325 MG TAB PO PRN (17:52)
[2022-06-29] MEDS ORDERED: LORazepam 2 MG/ML INJ IM PRN (17:57)
[2022-06-29] MEDS ORDERED: haloperidoL 5 MG TAB PO PRN (17:58)
[2022-06-29] MEDS ORDERED: hydrOXYzine pamoate 25 MG CAP PO ONE (18:15)
[2022-06-29] MEDS: NICOTINE GUM (POLACRILEX) 2 MG GUM BUCCAL PRN (20:21)
[2022-06-29] MEDS: FLUoxetine HCL 20 MG CAP PO SCH (20:21)
[2022-06-29] MEDS ORDERED: chlordiazePOXIDE 25 MG CAP PO SCH (22:00)
[2022-06-29] MEDS ORDERED: diazePAM 5 MG TAB PO SCH (22:00)
[2022-06-29] MEDS: diazePAM 5 MG TAB PO SCH (22:26)
[2022-06-30] MEDS: diazePAM 5 MG TAB PO SCH ×4 (03:49→21:56)
[2022-06-30] MEDS: THIAMINE 100 MG TAB PO SCH (09:51)
[2022-06-30] MEDS: MULTIVITAMINS, THERA 1 EACH TAB PO SCH (09:51)
[2022-06-30] MEDS: FOLIC ACID 1 MG TAB PO SCH (09:51)
[2022-06-30 10:06] LABS: Chol/HDL Ratio 4.95 Ratio; LDL Cholesterol,Calculated 99.6 mg/dL (0.0-131.0)
[2022-06-30] MEDS: NICOTINE GUM (POLACRILEX) 2 MG GUM BUCCAL PRN ×2 (11:07→16:27)
--- NOTE | 2022-06-30 13:10 | P.HPMEDMHU ---
History of Present Illness H&P Date: 06/30/22 Patient is a 26-year-old male with a history of all, I'll abuse, nicotine dependency, and recent suicidal ideation who was transferred to the mental health unit from the medical floor for further treatment. Patient seen and examined at bedside. He states he is feeling very calm and rested. He feels as though he is retired but is able to rest well. He does report feeling slightly anxious on the inside and having a slight headache. He denies any nausea, vomiting, diarrhea, constipation, chest pain, shortness of breath. Pertinent positives and negatives as discussed in HPI, a complete review of systems was performed and all other systems are negative. Vital signs reviewed General: nontoxic, no distress, appears at stated age Derm: warm, dry Head: atraumatic, normocephalic, symmetric Eyes: EOMI, no lid lag, anicteric sclera, pupils equal round reactive to light ENT: Nose and ears atraumatic, no thrush, no pharyngeal erythema Neck: No thyromegaly, no cervical lymphadenopathy, trachea midline, supple Mouth: no lip lesion, mucus membranes moist Cardiovascular: S1S2 reg, no murmur, positive posterior tibial pulse bilateral, no edema, capillary refill less than 2 seconds Lungs: clear to auscultation bilateral, no rhonchi, no rales, no wheeze, no accessory muscle use Abdominal: soft, nontender to palpation, no guarding, no appreciable organomegaly, normal bowel sounds Ext: no gross muscle atrophy, muscle strength 5 out of 5 in all 4 extremities, no contractures Neuro: CN II-XII grossly intact, no focal neuro deficits Psych: Alert, oriented, blunted affect Assessment/Plan: Alcohol withdrawal -Considering stopping scheduled Librium and continuing with as needed - thiamine, folic acid Nicotine dependency - replacement Suicidal ideation - your psych management Past Medical History Past Medical History: Asthma History of Any Multi-Drug Resistant Organisms: None Reported Past Surgical History: Adenoidectomy Past Anesthesia/Blood Transfusion Reactions: No Reported Reaction Past Psychological History: No Psychological Hx Reported Smoking Status: Current every day smoker Past Alcohol Use History: Occasional Additional Past Alcohol Use History / Comment(s): pt reports being sober for 21 days, recently started drinking 4 days ago. Past Drug Use History: Marijuana - Past Family History Father Additional Family Medical History / Comment(s): Unable to obtain, patient intoxicated Medications and Allergies Home Medications Medication Instructions Recorded Confirmed Type FLUoxetine HCL [PROzac] 20 mg PO HS cap 06/29/22 06/29/22 Rx Nicotine Gum (Polacrilex) 2 mg BUCCAL Q2HR PRN pieceofgum 06/29/22 06/29/22 Rx [Nicorette] Thiamine [Vitamin B-1] 100 mg PO BID-W/MEALS tab 06/29/22 06/29/22 Rx chlordiazePOXIDE HCl [Librium] 10 mg PO TID cap 06/29/22 06/29/22 Rx Allergies Allergy/AdvReac Type Severity Reaction Status Date / Time apple AdvReac Unknown Verified 06/29/22 09:20 Physical Exam Osteopathic Statement: *. No significant issues noted on an osteopathic structural exam other than those noted in the History and Physical/Consult. Vitals: Vital Signs Temp Pulse Resp BP 06/30/22 09:47 97.7 F 69 124/62 06/29/22 19:02 98.9 F 96 20 126/79 Intake and Output 06/29/22 06/30/22 06/30/22 22:59 06:59 14:59 Other: Weight 77 kg Cranial Nerve Examination - Cranial Nerves Cranial Nerve II- Optic: Intact Cranial Nerve III- Oculomotor: Intact Cranial Nerve IV- Trochlear: Intact Cranial Nerve V- Trigeminal: Intact Cranial Nerve - Abducens: Intact Cranial Nerve VII- Facial: Intact Cranial Nerve VIII- Auditory: Intact Cranial Nerve IX- Glossopharyngeal: Intact Cranial Nerve X- Vagus: Intact Cranial Nerve XI- Accessory: Intact Cranial Nerve XII- Hypoglossal: Intact Results Labs: Abnormal Lab Results - Last 24 Hours (Table) 06/29/22 Range/Units 03:23 Triglycerides 284.00 H (0.00-149.00) mg/dL VLDL Cholesterol, Calc 56.80 H (5.00-40.00) mg/dL HDL Cholesterol 39.60 L (40.00-60.00) mg/dL Thrombosis Risk Factor Assmnt - Choose All That Apply Any of the Below Risk Factors Present?: Yes Other Risk Factors: No Other congenital or acquired thrombophilia - If yes, enter type in comment: No
[2022-06-30] MEDS: LORazepam 1 MG TAB PO PRN (17:48)
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
[2022-06-30] MEDS: FLUoxetine HCL 20 MG CAP PO SCH (21:56)
[2022-07-01 06:56] VITALS: RESP 16
[2022-07-01] MEDS: THIAMINE 100 MG TAB PO SCH (08:42)
[2022-07-01] MEDS: MULTIVITAMINS, THERA 1 EACH TAB PO SCH (08:42)
[2022-07-01] MEDS: FOLIC ACID 1 MG TAB PO SCH (08:42)
[2022-07-01] MEDS: diazePAM 5 MG TAB PO SCH ×2 (08:43→15:43)
[2022-07-01] MEDS: NICOTINE GUM (POLACRILEX) 2 MG GUM BUCCAL PRN ×2 (11:06→15:44)
--- NOTE | 2022-07-01 16:45 | P.PN ---
Progress Note - Text Progress Note Date: 07/01/22 Interval history: Patient was seen attending group and was directable and agreeable to speak with writer producer. He reports mood, sleep and appetite are improving, but continues to be anxious. He is tolerating the Valium taper for alcohol withdrawal. He denies active symptoms of alcohol withdrawal currently. He has talked to his family and girlfriend and they are supportive of him getting substance abuse treatment. At this time, patient denies any suicidal or homicidal ideations intent or plan. He denies any auditory or visual hallucinations. Patient denies any side effects from the medications and has been compliant with meds. Mental status exam: General Appearance: Patient appears to be stated age, bruise beneath his left eye is alert, 5 linear superficial cuts on his neck (each several inches long). Improved hygiene and grooming. Behavior: No agitated behavior. Patient is calm and directable. Speech: Patient's speech is fluent and non-pressured. Mood/Affect: Mood is anxious, affect is congruent and constricted. Suicidality/Homicidality: Patient denies having any suicidal or homicidal ideation intent or plan. Perceptions: Patient denies any auditory or visual hallucinations. Though content/process: There is no evidence of any delusional thought content and thought process is linear and goal-directed. Memory and concentration: AOX3, grossly intact for the purposes of this session Judgment and insight: improving mildly Vital Signs (72 hours) 06/29/22 06/30/22 06/30/22 19:02 09:47 16:18 Temperature 98.9 F 97.7 F Pulse Rate [ 96 69 90 Right] Respiratory 20 18 Rate Blood Pressure 126/79 124/62 135/91 [Right Arm] 06/30/22 06/30/22 07/01/22 17:58 21:00 06:56 Temperature 98.1 F 97.4 F L 96.9 F L Pulse Rate [ 101 H 96 58 L Right] Respiratory 20 16 Rate Blood Pressure 153/106 129/77 99/50 [Right Arm] 07/01/22 08:44 Temperature Pulse Rate [ 86 Right] Respiratory Rate Blood Pressure 132/88 [Right Arm] Assessment/Plan: Continue with current diagnosis. Patient continues to meet criteria for inpatient psychiatric admission for symptom stabilization and safety. Continue Valium taper to 10 mg Q12H x 2 doses, and then 10 mg once for alcohol withdrawal. Consider increasing Prozac to 40 mg daily starting tomorrow. Patient is interested in residential substance abuse treatment program. Start antibiotic ointment for superficial cuts on neck. Monitor for medication compliance and for any psychotropic medication side effects. Will continue to monitor ongoing response to treatment. Encouraged participation in milieu.
[2022-07-01] MEDS ORDERED: BACITRACIN OINT 1 EACH PACKET TOPICAL PRN (16:50)
[2022-07-01] MEDS: LORazepam 1 MG TAB PO PRN ×2 (18:46→23:11)
[2022-07-01] MEDS: FLUoxetine HCL 20 MG CAP PO SCH (19:59)
[2022-07-02] MEDS ORDERED: diazePAM 5 MG TAB PO SCH (03:00)
[2022-07-02] MEDS: FOLIC ACID 1 MG TAB PO SCH (09:04)
[2022-07-02] MEDS: MULTIVITAMINS, THERA 1 EACH TAB PO SCH (09:04)
[2022-07-02] MEDS: THIAMINE 100 MG TAB PO SCH (09:05)
[2022-07-02] MEDS: NICOTINE GUM (POLACRILEX) 2 MG GUM BUCCAL PRN ×2 (11:02→20:12)
[2022-07-02] MEDS: diazePAM 5 MG TAB PO SCH ×2 (11:36→20:11)
--- NOTE | 2022-07-02 11:54 | P.PN ---
Progress Note - Text Progress Note Date: 07/02/22 Interval History: Patient was seen taking part in group this morning and was directable and agre eable to speak with flex o writer operator in the office. Patient continues to minimize his drinking and also his symptoms and need for being in the hospital. He continues to be fairly focused on discharge and wanting to get back to his mother's house. He states "I messed up" when speaking about his heavy drinking. He was fairly vague about his self harming and also his mood and depression. He states that he has been going to group and taking his medications as prescribed. He is reporting minimal withdrawal side effects at this time. States that he slept very good last night. At this time patient denies any suicidal or homical ideations, intent or plan. Patient denies any auditory, visual hallucinations and denies any paranoia or delusions. Patient denies any side effects from the medications and has been compliant with meds. Mental Status Exam: General Appearance: Patient appears to be stated age, bruise beneath his left eye is alert, 5 linear superficial cuts on his neck (each several inches long). Fair hygiene and grooming. Behavior: Patient is seated without any agitated behavior. constricted, evasive/gaurded Speech: Patient's speech is fluent and non-pressured. Mood/Affect: Patient reports their mood is "ok", affect is congruent and constricted. Suicidality/Homicidality: Patient denies having any homicidal ideation intent or plan. Denies any suicidal ideations, intent or plan. Perceptions: Patient denies any visual hallucinations and denies any auditory hallucinations. Though process: Circumstantial, logical,focused on discharge. Thought content: Thought distortions, magical thinking, poor coping. There is no evidence of any delusional thought content. Memory and concentration: AOX3, grossly intact for the purposes of this session Judgment and insight: poor/superficial IMPRESSIONS: Unspecified depressive disorder Unspecified anxiety disorder Alcohol use disorder with alcohol withdrawal Tobacco use disorder Cannabis use disorder Plan: -Patient continues to meet criteria for inpatient psychiatric admission for symptom stabilization and safety. Patient has signed adult voluntary form and medication consent and was placed in patient's chart. -Medications: Decreased Valium to 5 mg bid scheduled for alcohol withdrawal and then continue to taper down. Continue Prozac 20 mg daily for mood/anxiety. -When necessary Ativan and Haldol for agitation/aggression. -thiamine, MVM for etoh use -CIWA protocol with Ativan PRN for ETOH withdrawal -NRT - nicotine patch -SW on board for discharge planning. Encouraged the patient to participate in milieu. Patient was fairly guarded about going to rehab, we'll continue to touch base with him about this.
[2022-07-02] MEDS: LORazepam 1 MG TAB PO PRN ×2 (13:18→22:41)
[2022-07-02] MEDS: FLUoxetine HCL 20 MG CAP PO SCH (20:11)
[2022-07-03 06:45] VITALS: TEMP 97.6
[2022-07-03] MEDS: FOLIC ACID 1 MG TAB PO SCH (08:50)
[2022-07-03] MEDS: THIAMINE 100 MG TAB PO SCH (08:50)
[2022-07-03] MEDS: diazePAM 5 MG TAB PO SCH (08:50)
[2022-07-03] MEDS: MULTIVITAMINS, THERA 1 EACH TAB PO SCH (08:50)
[2022-07-03] MEDS: NICOTINE GUM (POLACRILEX) 2 MG GUM BUCCAL PRN (10:31)
--- NOTE | 2022-07-03 11:17 | P.PN ---
Progress Note - Text Progress Note Date: 07/03/22 Interval History: Patient was seen taking part in group this morning and was directable and agre eable to speak with automobile service writer in the office. Patient states that yesterday he was very upset with automobile service writer and "cried" after he found that he wasn't going to be discharged. He states that he understands more today about why he is not able to be discharged and wants to feel safe before he goes. He claims that his drinking is a problem and continues to be interested in going to [facility]. He states that he was not able to get in touch with him yesterday and will speak to the social media marketing manager about it today. He claims that he was able sleep better last night. He states that his withdrawal symptoms have been improving. Claims that his anxiety and mood are also improving. He is reporting minimal withdrawal side effects at this time. at this time patient denies any suicidal or homical ideations, intent or plan. Patient denies any auditory, visual hallucinations and denies any paranoia or delusions. Patient denies any side effects from the medications and has been compliant with meds. Mental Status Exam: General Appearance: Patient appears to be stated age, bruise beneath his left eye is alert, 5 linear superficial cuts on his neck (each several inches long). Fair hygiene and grooming. Behavior: Patient is seated without any agitated behavior. constricted, improving today Speech: Patient's speech is fluent and non-pressured. Mood/Affect: Patient reports their mood is "ok", affect is congruent Suicidality/Homicidality: Patient denies having any homicidal ideation intent or plan. Denies any suicidal ideations, intent or plan. Perceptions: Patient denies any visual hallucinations and denies any auditory hallucinations. Though process: Circumstantial, logical,focused on discharge, improving mildly Thought content: Thought distortions, magical thinking, poor coping. There is no evidence of any delusional thought content. Memory and concentration: AOX3, grossly intact for the purposes of this session Judgment and insight: poor/superficial, improving mildly IMPRESSIONS: Unspecified depressive disorder Unspecified anxiety disorder Alcohol use disorder with alcohol withdrawal Tobacco use disorder Cannabis use disorder Plan: -Patient continues to meet criteria for inpatient psychiatric admission for symptom stabilization and safety. Patient has signed adult voluntary form and medication consent and was placed in patient's chart. -Medications: Decreased Valium to 2 mg TID scheduled for alcohol withdrawal and then continue to taper down. Continue Prozac 20 mg daily for mood/anxiety. -When necessary Ativan and Haldol for agitation/aggression. -thiamine, MVM for etoh use -CIWA protocol with Ativan PRN for ETOH withdrawal -NRT - nicotine patch -SW on board for discharge planning. Encouraged the patient to participate in milieu. Patient will again try and call access line today for rehab to get an appointment/intake date. likely discharge in 1-2 days to mothers while awaiting rehab.
[2022-07-03] MEDS ORDERED: diazePAM 5 MG TAB PO SCH (15:00)
[2022-07-03] MEDS: LORazepam 1 MG TAB PO PRN (19:19)
[2022-07-03 19:21] VITALS: BP 122/70; PULSE 90
[2022-07-03] MEDS: FLUoxetine HCL 20 MG CAP PO SCH (21:47)
[2022-07-03] MEDS: diazePAM 2 MG TAB PO SCH (21:47)
[2022-07-04] MEDS: diazePAM 2 MG TAB PO SCH ×2 (02:17→08:24)
[2022-07-04] MEDS: THIAMINE 100 MG TAB PO SCH (08:24)
[2022-07-04] MEDS: MULTIVITAMINS, THERA 1 EACH TAB PO SCH (08:24)
[2022-07-04] MEDS: FOLIC ACID 1 MG TAB PO SCH (08:24)
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
[2022-07-04] MEDS: NICOTINE GUM (POLACRILEX) 2 MG GUM BUCCAL PRN (11:24)
[2022-07-04] MEDS: LORazepam 1 MG TAB PO PRN (11:24)
== END 2022-07-04 12:40 | disposition home or self-care (01) | DRG 881 ==
LOC: 3MHU 17:37
PROVIDERS: ADMIT Psychiatry & Neurology Psychiatry; ATTEND Psychiatry & Neurology Psychiatry
DX: F32.A Depression, unspecified (principal); F10.139 Alcohol abuse with withdrawal, unspecified; F12.10 Cannabis abuse, uncomplicated; F17.290 Nicotine dependence, other tobacco product, uncomplicated; F41.9 Anxiety disorder, unspecified; S00.12XA Contusion of left eyelid and periocular area, initial encounter; X78.1XXA Intentional self-harm by knife, initial encounter; Z63.72 Alcoholism and drug addiction in family; Z79.899 Other long term (current) drug therapy; Z81.1 Family history of alcohol abuse and dependence; Y04.2XXA Assault by strike against or bumped into by another person, initial encounter; Z71.89 Other specified counseling; Z28.310 Unvaccinated for COVID-19; Z28.21 Immunization not carried out because of patient refusal
CPT/HCPCS: 80061; 83036; 84443

== ENCOUNTER 2023-09-06 02:08 | Emergency (ER) | payer OTHER ==
[2023-09-06 02:40] VITALS: TEMP 98.3
[2023-09-06] MEDS ORDERED: LORazepam 1 MG TAB PO STA (02:52)
--- NOTE | 2023-09-06 02:53 | ED ---
Psych HPI - General Chief Complaint: Psychiatric Symptoms Stated Complaint: ETOH Time Seen by Provider: 09/06/23 02:14 Source: EMS, RN notes reviewed, old records reviewed Mode of arrival: EMS Limitations: no limitations - History of Present Illness Initial Comments: This is a 28-year-old male to the emergency department for evaluation today. Patient presents today for psychiatric illness. EMS brings patient in his PD was contacted to find this patient and he was acting erratically. Patient admits to drugs or alcohol today. But he denies homicidal or suicidal thoughts MD Complaint: altered mental status -: unknown Associated Psychiatric Symptoms: racing thoughts, visual hallucinations History of same: Yes Quality: constant, intermittent Context: recent alcohol abuse, recent drug abuse, significant life stressor Associated Symptoms: denies other symptoms Treatments Prior to Arrival: none - Related Data Previous Rx's Medication Instructions Recorded FLUoxetine HCL [PROzac] 20 mg PO HS #30 cap 07/04/22 Multivitamins, Thera [Multivitamin 1 each PO DAILY 30 Days tab 07/04/22 (formulary)] Nicotine Gum (Polacrilex) 2 mg BUCCAL Q4HR PRN 28 Days 07/04/22 [Nicorette] pieceofgum Allergies Allergy/AdvReac Type Severity Reaction Status Date / Time apple AdvReac Unknown Verified 09/06/23 02:35 Review of Systems ROS Statement: Those systems with pertinent positive or pertinent negative responses have been documented in the HPI. ROS Other: All systems not noted in ROS Statement are negative. Past Medical History Past Medical History: Asthma History of Any Multi-Drug Resistant Organisms: None Reported Past Surgical History: Adenoidectomy Past Anesthesia/Blood Transfusion Reactions: No Reported Reaction Past Psychological History: No Psychological Hx Reported Smoking Status: Current every day smoker Past Alcohol Use History: Occasional Past Drug Use History: Marijuana - Past Family History Father Additional Family Medical History / Comment(s): Unable to obtain, patient intoxicated General Exam General appearance: alert, in no apparent distress, anxious Head exam: Present: atraumatic, normocephalic, normal inspection Eye exam: Present: normal appearance, PERRL, EOMI. Absent: scleral icterus, conjunctival injection, periorbital swelling ENT exam: Present: normal exam, mucous membranes moist Neck exam: Present: normal inspection. Absent: tenderness, meningismus, lymphadenopathy Respiratory exam: Present: normal lung sounds bilaterally. Absent: respiratory distress, wheezes, rales, rhonchi, stridor Cardiovascular Exam: Present: regular rate, normal rhythm, normal heart sounds. Absent: systolic murmur, diastolic murmur, rubs, gallop, clicks GI/Abdominal exam: Present: soft, normal bowel sounds. Absent: distended, tenderness, guarding, rebound, rigid Extremities exam: Present: normal inspection, full ROM, normal capillary refill. Absent: tenderness, pedal edema, joint swelling, calf tenderness Back exam: Present: normal inspection Neurological exam: Present: alert, oriented X3, CN II-XII intact Psychiatric exam: Present: normal affect, normal mood Skin exam: Present: warm, dry, intact, normal color. Absent: rash Course Vital Signs 09/06/23 09/06/23 02:25 04:59 Temperature 98.3 F Pulse Rate 105 H 99 Respiratory 19 17 Rate Blood Pressure 128/102 138/95 O2 Sat by Pulse 98 97 Oximetry - Reevaluation(s) Reevaluation #1: 09/06/23 06:07 Medical record is reviewed Reevaluation #2: 09/06/23 06:08 Patient's rate denies suicidal thoughts denies psychiatric illness, patient does prefer discharged home Reevaluation #3: 09/06/23 06:08 Was able to speak with patient's family who do want to take patient home Reevaluation #4: 09/06/23 06:08 Was pt. sent in by a medical professional or institution ([facility], BUILDING ILLUMINATING ENGINEER, urgent care, hospital, or [facility]...) When possible be specific @ -no Did you speak to anyone other than the patient for history (EMS, parent, family, police, friend...)? What history was obtained from this source @ -no Did you review nursing and triage notes (agree or disagree)? Why? @ -agree Are old charts reviewed (outside hosp., previous admission, EMS record, old EKG, old radiological studies, urgent care reports/EKG's, [facility] records)? Report findings @ -yes Differential Diagnosis (chest pain, altered mental status, abdominal pain women, abdominal pain men, vaginal bleeding, weakness, fever, dyspnea, syncope, headache, dizziness, GI bleed, back pain, seizure, CVA, palpatations, mental health, musculoskeletal)? @ -prior EKG interpreted by me (3pts min.). @ -no X-rays interpreted by me (1pt min.). @ -no CT interpreted by me (1pt min.). @ -no U/S interpreted by me (1pt. min.). @ -no What testing was considered but not performed or refused? (CT, X-rays, U/S, labs)? Why? @ -none What meds were considered but not given or refused? Why? @ -none Did you discuss the management of the patient with other professionals (professionals i.e. DrAurea, PA, BUILDING ILLUMINATING ENGINEER, lab, RT, psych nurse, social media specialist, snowmaker, teacher, safety officer, rn field case manager)? Give summary @ -no Was smoking cessation discussed for >3mins.? @ -no Was critical care preformed (if so, how long)? @ -no Were there social determinants of health that impacted care today? How? (Homelessness, low income, unemployed, alcoholism, drug addiction, transportation, low edu. Level, literacy, decrease access to med. care, group home, rehab)? @ -none Was there de-escalation of care discussed even if they declined (Discuss DNR or withdrawal of care, Hospice)? DNR status @ -no What co-morbidities impacted this encounter? (DM, HTN, Smoking, COPD, CAD, C ancer, CVA, ARF, Chemo, Hep., AIDS, mental health diagnosis, sleep apnea, morbid obesity)? @ -none Was patient admitted / discharged? Hospital course, mention meds given and route, prescriptions, significant lab abnormalities, going to OR and other pertinent info. @ - 28 male to the emergency department was brought in for psychiatric evaluation secondary to altered mental status from drug use tonight. Patient have elevated alcohol level admits to drugs or abuse. Patient does have family member who is going to take him home when he is not homicidal or suicidal Discharged Undiagnosed new problem with uncertain prognosis? @ -no Drug Therapy requiring intensive monitoring for toxicity (Heparin, Nitro, Insulin, Cardizem)? @ -no Were any procedures done? @ -no Diagnosis/symptom? @ -Alcohol intoxication and altered mental status Acute, or Chronic, or Acute on Chronic? @ -Acute Uncomplicated (without systemic symptoms) or Complicated (systemic symptoms)? @ -Complicated Side effects of treatment? @ -no Exacerbation, Progression, or Severe Exacerbation? @ -exacerbation Poses a threat to life or bodily function? How? (Chest pain, [place], [place], pneumonia, PE, COPD, DKA, ARF, appy, cholecystitis, CVA, Diverticulitis, Homicidal, Suicidal, threat to staff... and all critical care pts) @ -yes with significant alcohol abuse Medical Decision Making - Medical Decision Making 28 male to the emergency department was brought in for psychiatric evaluation secondary to altered mental status from drug use tonight. Patient have elevated alcohol level admits to drugs or abuse. Patient does have family member who is going to take him home when he is not homicidal or suicidal Disposition Clinical Impression: Alcohol use disorder, Alcohol intoxication, Psychosis, Drug-induced psychotic disorder Disposition: HOME SELF-CARE Condition: Fair Instructions (If sedation given, give patient instructions): Polysubstance Abuse (ED) Is patient prescribed a controlled substance at d/c from ED?: No Referrals: None,Stated [Primary Care Provider] - 1-2 days Time of Disposition: 05:00
[2023-09-06 05:15] VITALS: BP 138/95; PULSE 99; RESP 17
== END 2023-09-06 05:09 | disposition home or self-care (01) ==
LOC: EC 02:08
DX: F29 Unspecified psychosis not due to a substance or known physiological condition (principal); F10.129 Alcohol abuse with intoxication, unspecified; J45.909 Unspecified asthma, uncomplicated; F17.200 Nicotine dependence, unspecified, uncomplicated; F12.90 Cannabis use, unspecified, uncomplicated; Z91.018 Allergy to other foods
CPT/HCPCS: 82075; 99285

== ENCOUNTER 2023-09-06 21:55 | Emergency (ER) | payer OTHER ==
[2023-09-06 22:08] VITALS: RESP 18
[2023-09-06] MEDS ORDERED: THIAMINE 100 MG/ML 2 ML VIAL IM STA (22:22)
[2023-09-06] MEDS ORDERED: LORazepam 2 MG/ML INJ IV PRN ×3 (22:22)
[2023-09-06 22:48] LABS: Basophils % (A) 0 %; Eosinophils # (A) 0.1 k/uL (0-0.7); Eosinophils % (A) 2 %; HGB 16.2 gm/dL (13.0-17.5); Lymphocytes % (A) 34 %; MCH 32.1 pg (25.0-35.0); MCHC 35.2 g/dL (31.0-37.0); MCV 91.5 fL (80.0-100.0); Mean Platelet Volume 7.8; Monocytes # (A) 0.3 k/uL (0-1.0); Monocytes % (A) 5 %; Neutrophils # (A) 3.3 k/uL (1.3-7.7); Neutrophils % (A) 57 %; Platelet Count 158 k/uL (150-450); RBC 5.03 m/uL (4.30-5.90); RDW 13.3 % (11.5-15.5); WBC 5.8 k/uL (3.8-10.6)
[2023-09-06 22:58] LABS: ALT 79 U/L (4-49); Acetaminophen <10.0 ug/mL; African American GFR (CKD) >90 (>60 ml/min/1.73 sqM); Albumin 4.5 g/dL (3.5-5.0); Anion Gap 14 mmol/L; Blood Urea Nitrogen 8 mg/dL (9-20); Calcium 8.9 mg/dL (8.4-10.2); Carbon Dioxide 20 mmol/L (22-30); Chloride 105 mmol/L (98-107); Glucose 134 mg/dL (74-99); Non-African American GFR(CKD) >90 (>60 ml/min/1.73 sqM); Salicylate <1.0 mg/dL; Sodium 139 mmol/L (137-145); Total Bilirubin 0.9 mg/dL (0.2-1.3); Total Protein 6.8 g/dL (6.3-8.2)
[2023-09-06 23:01] LABS: AST 119 U/L (17-59); Alcohol 150 mg/dL; Alkaline Phosphatase 44 U/L (38-126); Potassium 3.6 mmol/L (3.5-5.1)
[2023-09-06] MEDS ORDERED: ACETAMINOPHEN TAB 325 MG TAB PO STA (23:37)
--- NOTE | 2023-09-07 00:18 | XR ---
EXAM: XR Right Hand Complete, 3 or More Views CLINICAL HISTORY: ITS.REASON XR Reason: fall TECHNIQUE: Frontal, lateral and oblique views of the right hand. COMPARISON: 11/08/2019. FINDINGS: Bones/joints: Unremarkable. Normal anatomic alignment. No acute fracture, dislocation, or destructive process. Soft tissues: The soft tissues are unremarkable. No radiopaque foreign body. IMPRESSION: 1. No acute fracture or dislocation or destructive process. 2. If there is concern for cellulitis or osteomalacia, MRI imaging is advised for follow-up.
--- NOTE | 2023-09-07 00:21 | CT ---
EXAM: CT Head Without Intravenous Contrast CLINICAL HISTORY: ITS.REASON CT Reason: fall TECHNIQUE: Axial computed tomography images of the head/brain without intravenous contrast. CTDI is 45.2 mGy and DLP is 1058 mGy-cm. This CT exam was performed using one or more of the following dose reduction techniques: automated exposure control, adjustment of the mA and/or kV according to patient size, and/or use of iterative reconstruction technique. COMPARISON: 03/04/2019. FINDINGS: Brain: Unremarkable. No hemorrhage. No significant white matter disease. No abnormal extra-axial collection is noted. Midline shift: Midline anatomy is unremarkable. Ventricles: The ventricular system is age appropriate. Bones/joints: Calvarium is unremarkable. No acute fracture. Soft tissues: Unremarkable. Sinuses: Mild chronic ethmoid sinusitis. Mastoid air cells: Mastoid air cells are well pneumatized. IMPRESSION: 1. No acute intracranial pathology. 2. If there is concern for etiology such as early acute lacunar infarcts, MRI imaging of the brain with diffusion-weighted sequences should be performed. EXAM: CT Cervical Spine Without Intravenous Contrast CLINICAL HISTORY: ITS.REASON CT Reason: fall TECHNIQUE: Axial computed tomography images of the cervical spine without intravenous contrast. CTDI is 11.4 mGy and DLP is 314.3 mGy-cm. This CT exam was performed using one or more of the following dose reduction techniques: automated exposure control, adjustment of the mA and/or kV according to patient size, and/or use of iterative reconstruction technique. COMPARISON: No previous studies. FINDINGS: Vertebrae: Cervical and visualized thoracic vertebral bodies are maintained in height. Dextroscoliosis. There is a normal relationship of C1 and C2. Transaxial images of the cervical spine reveals no acute injury to the cervical spine. Normal alignment of the cervical spine. Discs/spinal canal/neural foramina: No acute findings. No spinal canal stenosis. Soft tissues: Paraspinal and regional soft tissues are within normal limits. Lung apices: Minimal scarring at the lung apices. IMPRESSION: No acute injury to the cervical spine.
--- NOTE | 2023-09-07 00:23 | CT ---
EXAM: CT Lumbar Spine Without Intravenous Contrast CLINICAL HISTORY: ITS.REASON CT Reason: fall TECHNIQUE: Axial computed tomography images of the lumbar spine without intravenous contrast. CTDI is 17 mGy and DLP is 591.8 mGy-cm. This CT exam was performed using one or more of the following dose reduction techniques: automated exposure control, adjustment of the mA and/or kV according to patient size, and/or use of iterative reconstruction technique. COMPARISON: 03/19/2018. FINDINGS: Vertebrae: Lower thoracic vertebral bodies and the sacrum are unremarkable. Spinous processes are unremarkable. Transverse processes are unremarkable. Normal alignment of the lumbar spine. No compression fractures of the lumbar spine. Discs/spinal canal/neural foramina: No acute findings. No spinal canal stenosis. Soft tissues: Paraspinal musculature is unremarkable. Lungs: Subsegmental atelectasis posteriorly at the lung bases. Pleural space: Unremarkable as visualized. No pleural effusions. Liver: Fatty liver. IMPRESSION: No acute injury to the lumbar spine.
--- NOTE | 2023-09-07 00:41 | ED ---
Alcohol HPI - General Chief Complaint: Alcohol Stated Complaint: Detox Time Seen by Provider: 09/06/23 22:14 Source: patient Mode of arrival: ambulatory Limitations: no limitations - History of Present Illness Initial Comments: 28-year-old male presenting for evaluation post fall. Patient is currently intoxicated and also admits to smoking marijuana tonight. Mother at bedside provides majority of the history. Patient was here last night after drinking and taking acid, he was discharged home. Mother states that the patient had a fall and she would like him evaluated. He has pain and swelling to the right hand over the fifth and fourth digits after punching a metal garbage can last night. Unsure if there was any head injury or loss of consciousness with this fall. He is also complaining of lower back pain. No loss of bowel or bladder control or saddle paresthesia. Patient states that he will be checking into rehab. No history of delirium tremens. Patient normally drinks 2 pints per day. - Related Data Previous Rx's Medication Instructions Recorded FLUoxetine HCL [PROzac] 20 mg PO HS #30 cap 07/04/22 Multivitamins, Thera [Multivitamin 1 each PO DAILY 30 Days tab 07/04/22 (formulary)] Nicotine Gum (Polacrilex) 2 mg BUCCAL Q4HR PRN 28 Days 07/04/22 [Nicorette] pieceofgum Allergies Allergy/AdvReac Type Severity Reaction Status Date / Time apple AdvReac Unknown Verified 09/06/23 02:35 Review of Systems ROS Statement: Those systems with pertinent positive or pertinent negative responses have been documented in the HPI. ROS Other: All systems not noted in ROS Statement are negative. Past Medical History Past Medical History: Asthma History of Any Multi-Drug Resistant Organisms: None Reported Past Surgical History: Adenoidectomy Past Anesthesia/Blood Transfusion Reactions: No Reported Reaction Past Psychological History: No Psychological Hx Reported Smoking Status: Current every day smoker Past Alcohol Use History: Occasional Past Drug Use History: Marijuana - Past Family History Father Additional Family Medical History / Comment(s): Unable to obtain, patient intoxi cated General Exam Limitations: altered mental status (Intoxicated) General appearance: alert, appears intoxicated Head exam: Present: atraumatic, normocephalic, normal inspection Eye exam: Present: normal appearance, PERRL, EOMI. Absent: periorbital swelling Neck exam: Present: normal inspection, full ROM Respiratory exam: Present: normal lung sounds bilaterally. Absent: respiratory distress, wheezes, rales, rhonchi, stridor Cardiovascular Exam: Present: regular rate, normal rhythm, normal heart sounds. Absent: systolic murmur, diastolic murmur, rubs, gallop, clicks Right Hand Wrist exam: Present: full ROM, tenderness, swelling (Over the fourth and fifth metacarpals) Neurological exam: Present: alert, altered (Intoxicated) Psychiatric exam: Present: normal affect, normal mood Skin exam: Present: warm, dry, intact, normal color. Absent: rash Course Vital Signs 09/06/23 09/06/23 22:01 22:09 Temperature 97.8 F 98.6 F Pulse Rate 102 H 95 Respiratory 18 18 Rate Blood Pressure 117/77 100/59 O2 Sat by Pulse 97 98 Oximetry Medical Decision Making - Medical Decision Making Was pt. sent in by a medical professional or institution (, PA, MENTAL HEALTH DIRECTOR, urgent care, hospital, or [facility]...) When possible be specific @ -No Did you speak to anyone other than the patient for history (EMS, parent, family, police, friend...)? What history was obtained from this source @ -History supplemented by mother Did you review nursing and triage notes (agree or disagree)? Why? @ -I reviewed and agree with nursing and triage notes Were old charts reviewed (outside hosp., previous admission, EMS record, old EKG, old radiological studies, urgent care reports/EKG's, [facility] records)? Report findings @ -No old charts were reviewed Differential Diagnosis (chest pain, altered mental status, abdominal pain women, abdominal pain men, vaginal bleeding, weakness, fever, dyspnea, syncope, headache, dizziness, GI bleed, back pain, seizure, CVA, palpatations, mental health, musculoskeletal)? @ -Differential Musculoskeletal Muscular strain, contusion, ligament sprain, fracture, arthritis, septic arth ritis, bursitis, cellulitis, muscle spasm, nerve compression, DVT, arterial occlusion, herpes zoster, electrolyte abnormality, tumor.... This is not meant to be in all inclusive list EKG interpreted by me (3pts min.). @ -As above X-rays interpreted by me (1pt min.). @ -Negative x-ray of the right hand CT interpreted by me (1pt min.). @ -Negative CT of the brain, cervical spine, lumbar spine U/S interpreted by me (1pt. min.). @ -None done What testing was considered but not performed or refused? (CT, X-rays, U/S, labs)? Why? @ -None What meds were considered but not given or refused? Why? @ -None Did you discuss the management of the patient with other professionals (professionals i.e. DrAurea, PA, MENTAL HEALTH DIRECTOR, lab, RT, psych nurse, 7th grade social studies teacher, marketing production coordinator, te acher, special officer, community case manager)? Give summary @ -No Was smoking cessation discussed for >3mins.? @ -No Was critical care preformed (if so, how long)? @ -No Were there social determinants of health that impacted care today? How? (Homelessness, low income, unemployed, alcoholism, drug addiction, transportation, low edu. Level, literacy, decrease access to med. care, intermediate, rehab)? @ -Alcoholism Was there de-escalation of care discussed even if they declined (Discuss DNR or withdrawal of care, Hospice)? DNR status @ -No What co-morbidities impacted this encounter? (DM, HTN, Smoking, COPD, CAD, Cancer, CVA, ARF, Chemo, Hep., AIDS, mental health diagnosis, sleep apnea, morbid obesity)? @ -None Was patient admitted / discharged? Hospital course, mention meds given and route, prescriptions, significant lab abnormalities, going to OR and other pertinent info. @ -28-year-old male presenting for evaluation post fall. Patient is currently intoxicated, normally drinks 2 pints a day. Complaining of right hand pain and lower back pain. No red flag symptoms. X-ray of the hand and CT of the brain, cervical spine, lumbar spine are negative. Serum alcohol 150. CIWA score 2. Patient is observed until sober, then discharged. Patient states that he will be checking in the [facility] in the morning. Follow-up with PCP. Report back to ER with any new or worsening symptoms. Discussed return parameters and answered all questions. Patient conveyed verbal understanding and agreed to the plan. I discussed this case in detail with my attending Dr. Omer Undiagnosed new problem with uncertain prognosis? @ -No Drug Therapy requiring intensive monitoring for toxicity (Heparin, Nitro, Insulin, Cardizem)? @ -No Were any procedures done? @ -No Diagnosis/symptom? @ -Fall, alcohol intoxication Acute, or Chronic, or Acute on Chronic? @ -Acute Uncomplicated (without systemic symptoms) or Complicated (systemic symptoms)? @ -Uncomplicated Side effects of treatment? @ -No Exacerbation, Progression, or Severe Exacerbation? @ -No Poses a threat to life or bodily function? How? (Chest pain, [place], [place], pneumonia, PE, COPD, DKA, ARF, appy, cholecystitis, CVA, Diverticulitis, Homicidal, Suicidal, threat to staff... and all critical care pts) @ -No - Lab Data Result diagrams: 09/06/23 22:32 09/06/23 22:32 Lab Results 09/06/23 09/06/23 Range/Units 22:32 22:32 WBC 5.8 (3.8-10.6) k/uL RBC 5.03 (4.30-5.90) m/uL Hgb 16.2 (13.0-17.5) gm/dL Hct 46.0 (39.0-53.0) % MCV 91.5 (80.0-100.0) fL MCH 32.1 (25.0-35.0) pg MCHC 35.2 (31.0-37.0) g/dL RDW 13.3 (11.5-15.5) % Plt Count 158 (150-450) k/uL MPV 7.8 Neutrophils % 57 % Lymphocytes % 34 % Monocytes % 5 % Eosinophils % 2 % Basophils % 0 % Neutrophils # 3.3 (1.3-7.7) k/uL Lymphocytes # 2.0 (1.0-4.8) k/uL Monocytes # 0.3 (0-1.0) k/uL Eosinophils # 0.1 (0-0.7) k/uL Basophils # 0.0 (0-0.2) k/uL Sodium 139 (137-145) mmol/L Potassium 3.6 (3.5-5.1) mmol/L Chloride 105 (98-107) mmol/L Carbon Dioxide 20 L (22-30) mmol/L Anion Gap 14 mmol/L BUN 8 L (9-20) mg/dL Creatinine 0.71 (0.66-1.25) mg/dL Est GFR (CKD-EPI)AfAm >90 (>60 ml/min/1.73 sqM) Est GFR (CKD-EPI)NonAf >90 (>60 ml/min/1.73 sqM) Glucose 134 H (74-99) mg/dL Calcium 8.9 (8.4-10.2) mg/dL Total Bilirubin 0.9 (0.2-1.3) mg/dL AST 119 H (17-59) U/L ALT 79 H (4-49) U/L Alkaline Phosphatase 44 (38-126) U/L Total Protein 6.8 (6.3-8.2) g/dL Albumin 4.5 (3.5-5.0) g/dL Salicylates <1.0 mg/dL Acetaminophen <10.0 ug/mL Serum Alcohol 150 mg/dL Disposition Clinical Impression: Alcohol intoxication Disposition: HOME SELF-CARE Condition: Fair Instructions (If sedation given, give patient instructions): Alcohol Intoxication (ED), Alcohol Withdrawal (ED) Additional Instructions: Follow-up with PCP. Report back to ER with any new or worsening symptoms. You may call [facility] in the morning to see about availability. Is patient prescribed a controlled substance at d/c from ED?: No Referrals: None,Stated [Primary Care Provider] - 1-2 days
[2023-09-07] MEDS ORDERED: KETOROLAC 15 MG/ML 1 ML VIAL IVP STA (00:50)
[2023-09-07 04:20] VITALS: BP 100/63; PULSE 68; TEMP 98.2
[2023-09-07] MEDS ORDERED: THIAMINE 100 MG TAB PO SCH (09:00)
== END 2023-09-07 04:07 | disposition home or self-care (01) ==
LOC: EC 21:55
DX: F10.129 Alcohol abuse with intoxication, unspecified (principal); M79.641 Pain in right hand; M54.50 Low back pain, unspecified; J45.909 Unspecified asthma, uncomplicated; F17.200 Nicotine dependence, unspecified, uncomplicated; F12.90 Cannabis use, unspecified, uncomplicated; Y90.6 Blood alcohol level of 120-199 mg/100 ml; Z91.018 Allergy to other foods; W19.XXXA Unspecified fall, initial encounter; W22.8XXA Striking against or struck by other objects, initial encounter
CPT/HCPCS: 36415; 80053; 85025; 80143; 80179; 73130; 72125; 72131; 70450; 99285; 96374; 96375; 96372; G0480; J2060; J3411; J1885; 80320

== ENCOUNTER 2023-12-11 19:41 | Emergency (ER) | payer OTHER ==
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
[2023-12-11 20:28] VITALS: BP 129/73; PULSE 89; RESP 18; TEMP 97.5
--- NOTE | 2023-12-11 21:22 | CT ---
EXAMINATION TYPE: CT brain cspine wo con CT DLP: 1376.6 mGycm, Automated exposure control for dose reduction was used. DATE OF EXAM: 12/11/2023 9:02 PM COMPARISON: None. CLINICAL INDICATION:Male, 28 years old with history of head injury, intoxicated; head injury. ETOH TECHNIQUE: Brain: Multiple axial CT images of the brain were obtained without IV contrast. Cspine: Axial CT images from the skull base to the inferior aspect of T2 we obtained without intraven ous contrast. Coronal and sagittal reformatted images were also reviewed. FINDINGS: Brain: Extra-axial spaces: No abnormal extra-axial fluid collections. Ventricular system: Within normal limits Cerebral parenchyma: No acute intraparenchymal hemorrhage or mass effect. The del castillo-white junction is well differentiated. Cerebellum: Unremarkable. Mass effect: No evidence of midline shift. Intracranial vasculature: unremarkable Soft tissues: Normal. Calvarium/osseous structures: No depressed skull fracture. Paranasal sinuses and mastoid air cells: Clear. Visualized orbits: Orbital contents are intact. Cervical spine: Fracture: None. Osseous structures: Unremarkable Vertebral alignment: Within normal limits. Spinal canal/Neural Foramina: No evidence of significant spinal canal narrowing. No evidence for sign ificant neural foraminal stenosis. Neck soft tissues: Prevertebral soft tissues are within normal limits. Other: The airway is patent. The lung apices are clear. IMPRESSION: 1. No acute intracranial process 2. No evidence of cervical spine fracture. 3. Mild multilevel degenerative disc disease.
== END 2023-12-11 21:45 | disposition left against medical advice (07) ==
LOC: EC 19:41
DX: S09.90XA Unspecified injury of head, initial encounter (principal); Z53.29 Procedure and treatment not carried out because of patient's decision for other reasons; J45.909 Unspecified asthma, uncomplicated; F17.200 Nicotine dependence, unspecified, uncomplicated; F12.90 Cannabis use, unspecified, uncomplicated; Z91.018 Allergy to other foods; W22.01XA Walked into wall, initial encounter; Y92.009 Unspecified place in unspecified non-institutional (private) residence as the place of occurrence of the external cause
CPT/HCPCS: 70450; 72125; 99283